=== PATIENT | female | born 1975 | race Caucasian/White ===

== ENCOUNTER 2018-08-07 20:25 | Emergency (ER) | payer MEDICAID, OTHER | END 2018-08-08 01:36 | disposition home or self-care (01) | LOC: E/R 08-08 01:36 | DX: R06.02 Shortness of breath (principal) | CPT/HCPCS: 71045; 99283-25 ==

== ENCOUNTER 2018-12-02 14:46 | Inpatient (IN) | payer MEDICAID ==
[2018-12-02] MEDS: CEFEPIME 2GM/50 ML (PMX) 50 ML IVPB (15:16)
[2018-12-02] MEDS: SODIUM CHLORIDE 0.9% 1L BAG IV* (15:16)
[2018-12-02 15:29] LABS: ABNORMAL IP MESSAGE 1; HEMATOCRIT 43.5 % (37.0-47.0); HEMOGLOBIN 13.4 g/dl (12.0-16.0); MEAN CORPUSCULAR HGB CONC 30.8 g/dl (32.0-37.0); MEAN CORPUSCULAR VOLUME 90.8 fl (82.0-101.0); MEAN PLATELET VOLUME 10.2 fl (7.4-10.4); PLATELET COUNT 237 10^3/UL (140-415); RED BLOOD COUNT 4.79 10^6/ul (4.20-5.40); RED CELL DISTRIBUTION WIDTH 16.4 % (11.5-14.5)
[2018-12-02 15:29] LABS: WHITE BLOOD COUNT 18.8 10^3/ul (4.8-10.8)
[2018-12-02] MEDS: IBUPROFEN LIQUID (PED) 20 MG/ML CUP GTB (15:30)
[2018-12-02 15:32] LABS: ADD MAN DIFF? YES; POSITIVE DIFF @See below
[2018-12-02 15:40] LABS: ADD UMIC YES; UR ASCORBIC ACID 40 mg/dL (NEGATIVE); UR BILIRUBIN (Dip) NEGATIVE (NEGATIVE); UR BLOOD (Dip) NEGATIVE (NEGATIVE); UR BUDDING YEAST MANY /HPF (NONE SEEN); UR CLARITY CLOUDY (CLEAR); UR COLOR AMBER (YELLOW); UR GLUCOSE (Dip) 1+ mg/dL (NEGATIVE); UR KETONES (Dip) TRACE mg/dL (NEGATIVE); UR LEUKOCYTE ESTERASE (Dip) 2+ Leu/ul (NEGATIVE); UR MUCUS FEW /HPF (NONE SEEN); UR NITRITE (Dip) NEGATIVE (NEGATIVE); UR RBC 1 /HPF (0-5); UR SPECIFIC GRAVITY (Dip) 1.033 (1.003-1.030); UR TOTAL PROTEIN (Dip) 1+ mg/dl (NEGATIVE); UR UROBILINOGEN (Dip) NEGATIVE (NEGATIVE); UR WBC 45 /HPF (0-5)
[2018-12-02 15:50] LABS: INR 1.26; PROTIME 15.9 Sec (11.9-14.9); PT RATIO 1.2
[2018-12-02 15:51] LABS: PARTIAL THROMBOPLASTIN TIME 35.2 Sec (23.0-35.0)
[2018-12-02] MEDS: VANCOMYCIN 1 GM (PMX) 250 ML IVPB (15:52)
[2018-12-02 15:53] LABS: ALANINE AMINOTRANSFERASE 8 IU/L (13-69); ALBUMIN 3.7 g/dl (3.3-4.9); ALKALINE PHOSPHATASE 110 IU/L (42-121); ANION GAP 10 (5-13); ASPARTATE AMINO TRANSFERASE 33 IU/L (15-46); BILIRUBIN,INDIRECT 0.4 mg/dl (0-1.1); BILIRUBIN,TOTAL 0.4 mg/dl (0.2-1.3); BLOOD UREA NITROGEN 27 mg/dl (7-20); CALCIUM 9.3 mg/dl (8.4-10.2); CARBON DIOXIDE 24 mmol/L (21-31); CHLORIDE 114 mmol/L (97-110); CREATININE 0.24 mg/dl (0.44-1.00); Estimated GFR > 60 mL/min (>60); GLUCOSE 171 mg/dl (70-220); POTASSIUM 3.3 mmol/L (3.5-5.1); SODIUM 148 mmol/L (135-144); TOTAL PROTEIN 7.8 g/dl (6.1-8.1)
[2018-12-02 16:03] LABS: TROPONIN-I < 0.012 ng/ml (0.000-0.120)
[2018-12-02 16:19] LABS: ANISOCYTOSIS 1+ (0-0); BAND NEUTROPHILS #M 6.2 10^3/ul (0.0-0.6); BAND NEUTROPHILS % (M) 33 % (0-4); LYMPHOCYTES #M 0.1 10^3/ul (0.8-2.9); LYMPHOCYTES % (M) 1 % (15-51); MICROCYTOSIS 1+ (0-0); MONOCYTE #M 0.7 10^3/ul (0.3-0.9); MONOCYTES % (M) 4 % (0-11); SEG NEUT #M 12.8 10^3/ul (1.6-7.5); SEGMENTED NEUTROPHILS (M) % 62 % (39-77); SMUDGE%M 55 % (0-0)
[2018-12-02] MEDS: morphine 4 MG/ML VIAL IV (16:46)
[2018-12-02 16:58] LABS: AADO2 Arterial 175.6 mmHg (7.0-24.0); Allen Test ACCEPTAB; Arterial Base Excess -4.3 mmol/L (-3.0-3); Arterial Blood Gas Oxygen Sat 94.6 mmHG (95.0-98.0); Arterial COHb 0.3 % (0.0-3.0); Arterial Fraction of Oxyhgb 94.1 % (93.0-99.0); Arterial HCO3 19.9 mmol/L (22.0-26.0); Arterial MetHb 0.2 % (0.0-1.5); Arterial pCO2 34.1 mmhg (35-45); Blood Gas IEPAP 15/5; Blood Gas PS 10; MODE MASK - BIPAP; Site Left Radial
[2018-12-02] MEDS ORDERED: ACETAMINOPHEN 325 MG TAB PO (17:00)
[2018-12-02] MEDS ORDERED: ONDANSETRON 4 MG INJ IV (17:00)
[2018-12-02] MEDS: ALBUTEROL/IPRATROPIUM (NEB) 3 ML AMP HHN (20:00)
[2018-12-02] MEDS ORDERED: VANCOMYCIN IV PER PHARMACY XX (20:00)
[2018-12-02] MEDS: POTASSIUM CHLORIDE (SR) 20 MEQ TAB PO (20:05)
[2018-12-02 21:53] LABS: LACTIC ACID 2.5 mmol/L (0.5-2.0)
[2018-12-02] MEDS: D5W-0.45 NACL + KCL 20 MEQ 1,000 ML IV (22:33)
[2018-12-02] MEDS: CEFEPIME 1GM/50 ML (PMX) 50 ML IVPB (22:38)
[2018-12-03] MEDS: VANCOMYCIN 1 GM 250 ML IVPB ×3 (00:38→17:29)
[2018-12-03] MEDS: ALBUTEROL/IPRATROPIUM (NEB) 3 ML AMP HHN ×4 (01:52→19:36)
[2018-12-03] MEDS ORDERED: PENDING SANTYL ORDER FOR WOUND CARE XX (05:00)
[2018-12-03] MEDS: PANTOPRAZOLE (EC) 40 MG TAB PO (05:47)
[2018-12-03 06:22] LABS: WHITE BLOOD COUNT 12.3 10^3/ul (4.8-10.8)
[2018-12-03 06:22] LABS: ABNORMAL IP MESSAGE 1; HEMOGLOBIN 10.7 g/dl (12.0-16.0); MEAN CORPUSCULAR HEMOGLOBIN 27.2 pg (29.0-33.0); MEAN CORPUSCULAR HGB CONC 28.9 g/dl (32.0-37.0); MEAN CORPUSCULAR VOLUME 93.9 fl (82.0-101.0); MEAN PLATELET VOLUME 10.5 fl (7.4-10.4); PLATELET COUNT 177 10^3/UL (140-415); RED BLOOD COUNT 3.94 10^6/ul (4.20-5.40); RED CELL DISTRIBUTION WIDTH 16.4 % (11.5-14.5)
[2018-12-03 06:34] LABS: POSITIVE DIFF @See below
[2018-12-03 06:35] LABS: ADD MAN DIFF? YES
[2018-12-03 06:46] LABS: ANION GAP 7 (5-13); BLOOD UREA NITROGEN 24 mg/dl (7-20); CALCIUM 8.6 mg/dl (8.4-10.2); CARBON DIOXIDE 25 mmol/L (21-31); CHLORIDE 116 mmol/L (97-110); CREATININE 0.17 mg/dl (0.44-1.00); Estimated GFR > 60 mL/min (>60); GLUCOSE 96 mg/dl (70-220); SODIUM 148 mmol/L (135-144)
[2018-12-03 06:51] LABS: PREALBUMIN 14.4 mg/dl (17.6-36.0)
[2018-12-03 07:35] LABS: ANISOCYTOSIS 1+ (0-0); BAND NEUTROPHILS #M 4.6 10^3/ul (0.0-0.6); BAND NEUTROPHILS % (M) 38 % (0-4); LYMPHOCYTES #M 0.9 10^3/ul (0.8-2.9); LYMPHOCYTES % (M) 8 % (15-51); MICROCYTOSIS 1+ (0-0); MONOCYTE #M 0.1 10^3/ul (0.3-0.9); MONOCYTES % (M) 1 % (0-11); PLATELET ESTIMATE NORMAL; POIKILOCYTOSIS 1+ (0-0); SEG NEUT #M 7.1 10^3/ul (1.6-7.5); SEGMENTED NEUTROPHILS (M) % 53 % (39-77); SMUDGE%M 19 % (0-0)
[2018-12-03] MEDS: D5W-0.45 NACL + KCL 20 MEQ 1,000 ML IV ×2 (08:20→17:32)
[2018-12-03] MEDS: CEFEPIME 1GM/50 ML (PMX) 50 ML IVPB ×2 (08:25→22:04)
[2018-12-03] MEDS: ENOXAPARIN 40 MG/0.4 ML SYG SC (09:05)
[2018-12-03 09:12] LABS: AADO2 Arterial 138.9 mmHg (7.0-24.0); Allen Test ACCEPTAB; Arterial Base Excess -0.5 mmol/L (-3.0-3); Arterial COHb 0.2 % (0.0-3.0); Arterial Fraction of Oxyhgb 97.6 % (93.0-99.0); Arterial HCO3 22.8 mmol/L (22.0-26.0); Arterial MetHb 0.2 % (0.0-1.5); Arterial pCO2 32.7 mmhg (35-45); Blood Gas IEPAP 15/5; Blood Gas PS 10; MODE MASK - BIPAP; Site Right Radial
[2018-12-03 15:55] LABS: VANCOMYCIN,TROUGH 14.1 ug/ml (10.0-20.0)
[2018-12-04] MEDS: VANCOMYCIN 1 GM 250 ML IVPB ×3 (00:45→16:39)
[2018-12-04] MEDS: ALBUTEROL/IPRATROPIUM (NEB) 3 ML AMP HHN ×4 (01:42→20:18)
[2018-12-04] MEDS: PANTOPRAZOLE (EC) 40 MG TAB PO (05:25)
[2018-12-04] MEDS: CEFEPIME 1GM/50 ML (PMX) 50 ML IVPB ×2 (08:13→20:49)
[2018-12-04] MEDS: D5W-0.45 NACL + KCL 20 MEQ 1,000 ML IV ×2 (08:13→16:39)
[2018-12-04] MEDS: ENOXAPARIN 40 MG/0.4 ML SYG SC (08:25)
[2018-12-04] MEDS: BALSAM PERU/CASTOR OIL 60 GM TUBE TOP ×2 (13:00→20:49)
[2018-12-05] MEDS: VANCOMYCIN 1 GM 250 ML IVPB ×3 (00:29→16:02)
[2018-12-05] MEDS: ALBUTEROL/IPRATROPIUM (NEB) 3 ML AMP HHN ×4 (02:30→19:32)
[2018-12-05] MEDS: PANTOPRAZOLE (EC) 40 MG TAB PO (05:36)
[2018-12-05 07:06] LABS: BLOOD UREA NITROGEN 5 mg/dl (7-20)
[2018-12-05 07:06] LABS: CREATININE 0.24 mg/dl (0.44-1.00)
[2018-12-05] MEDS: CEFEPIME 1GM/50 ML (PMX) 50 ML IVPB ×2 (08:43→21:25)
[2018-12-05] MEDS: BALSAM PERU/CASTOR OIL 60 GM TUBE TOP ×2 (08:43→21:26)
[2018-12-05] MEDS: ACETAMINOPHEN 650MG/20.3ML CUP GTB (08:43)
[2018-12-05] MEDS: ENOXAPARIN 40 MG/0.4 ML SYG SC (09:18)
[2018-12-05] MEDS: D5W-0.45 NACL + KCL 20 MEQ 1,000 ML IV ×2 (11:21→23:00)
[2018-12-06] MEDS: VANCOMYCIN 1 GM 250 ML IVPB ×3 (01:14→18:39)
[2018-12-06] MEDS: ALBUTEROL/IPRATROPIUM (NEB) 3 ML AMP HHN ×4 (02:41→19:40)
[2018-12-06] MEDS: PANTOPRAZOLE (EC) 40 MG TAB PO (05:37)
[2018-12-06] MEDS: D5W-0.45 NACL + KCL 20 MEQ 1,000 ML IV ×2 (05:38→19:21)
[2018-12-06] MEDS: BALSAM PERU/CASTOR OIL 60 GM TUBE TOP ×2 (08:07→21:03)
[2018-12-06] MEDS: CEFEPIME 1GM/50 ML (PMX) 50 ML IVPB ×2 (08:07→21:04)
[2018-12-06] MEDS: ENOXAPARIN 40 MG/0.4 ML SYG SC (08:21)
[2018-12-06 08:29] LABS: VANCOMYCIN,TROUGH 30.3 ug/ml (10.0-20.0)
[2018-12-07] MEDS: ALBUTEROL/IPRATROPIUM (NEB) 3 ML AMP HHN ×4 (01:29→19:40)
[2018-12-07] MEDS: PANTOPRAZOLE (EC) 40 MG TAB PO (06:00)
[2018-12-07] MEDS: VANCOMYCIN 1 GM 250 ML IVPB ×2 (06:01→18:44)
[2018-12-07 06:47] LABS: BLOOD UREA NITROGEN 13 mg/dl (7-20)
[2018-12-07 06:47] LABS: CREATININE 0.44 mg/dl (0.44-1.00)
[2018-12-07] MEDS: CEFEPIME 1GM/50 ML (PMX) 50 ML IVPB ×2 (10:12→22:18)
[2018-12-07] MEDS: BALSAM PERU/CASTOR OIL 60 GM TUBE TOP ×2 (10:13→21:30)
[2018-12-07] MEDS: ENOXAPARIN 40 MG/0.4 ML SYG SC (11:25)
[2018-12-07] MEDS: D5W-0.45 NACL + KCL 20 MEQ 1,000 ML IV (12:30)
[2018-12-07] MEDS ORDERED: FAMOTIDINE 20 MG TAB NGT (21:00)
[2018-12-07] MEDS: OXCARBAZEPINE 150 MG TAB GTB (23:51)
[2018-12-08] MEDS: ALBUTEROL/IPRATROPIUM (NEB) 3 ML AMP HHN ×4 (02:45→20:58)
[2018-12-08] MEDS: LANSOPRAZOLE 30 MG CAP PO (06:20)
[2018-12-08 06:55] LABS: ADD MAN DIFF? NO
[2018-12-08] MEDS: VANCOMYCIN 1 GM 250 ML IVPB (07:00)
[2018-12-08 07:03] LABS: WHITE BLOOD COUNT 12.2 10^3/ul (4.8-10.8)
[2018-12-08 07:03] LABS: BASOPHILS % 0.2 % (0.0-2.0); EOSINOPHILS # 0.3 10^3/ul (0.0-0.5); EOSINOPHILS % 2.8 % (0.0-7.0); HEMATOCRIT 30.6 % (37.0-47.0); HEMOGLOBIN 9.5 g/dl (12.0-16.0); LYMPHOCYTES # 1.9 10^3/ul (0.8-2.9); LYMPHOCYTES % 15.9 % (15.0-51.0); MEAN CORPUSCULAR HEMOGLOBIN 27.2 pg (29.0-33.0); MEAN CORPUSCULAR VOLUME 87.7 fl (82.0-101.0); MEAN PLATELET VOLUME 10.4 fl (7.4-10.4); MONOCYTE # 0.4 10^3/ul (0.3-0.9); MONOCYTES % 3.6 % (0.0-11.0); NEUTROPHIL # 9.4 10^3/ul (1.6-7.5); NEUTROPHILS % 76.8 % (39.0-77.0); PLATELET COUNT 263 10^3/UL (140-415); RED BLOOD COUNT 3.49 10^6/ul (4.20-5.40); RED CELL DISTRIBUTION WIDTH 15.2 % (11.5-14.5)
[2018-12-08 07:42] LABS: ANION GAP 3 (5-13); BLOOD UREA NITROGEN 16 mg/dl (7-20); CALCIUM 8.4 mg/dl (8.4-10.2); CARBON DIOXIDE 39 mmol/L (21-31); CHLORIDE 103 mmol/L (97-110); CREATININE 0.41 mg/dl (0.44-1.00); Estimated GFR > 60 mL/min (>60); GLUCOSE 118 mg/dl (70-220); MAGNESIUM 2.1 mg/dl (1.7-2.5); SODIUM 145 mmol/L (135-144)
[2018-12-08 07:53] LABS: VANCOMYCIN,TROUGH 22.9 ug/ml (10.0-20.0)
[2018-12-08 07:59] LABS: POTASSIUM 2.7 mmol/L (3.5-5.1)
[2018-12-08] MEDS: ZINC SULFATE 220 MG CAP GTB (09:00)
[2018-12-08] MEDS: OXCARBAZEPINE 150 MG TAB GTB ×2 (09:00→21:44)
[2018-12-08] MEDS: FLUCONAZOLE 200 MG TAB GTB (09:00)
[2018-12-08] MEDS: MULTIVIT/CA CARB/B CMPLX/FA TAB GTB (09:00)
[2018-12-08] MEDS: POTASSIUM CHLORIDE (SR) 20 MEQ TAB PO ×2 (09:00→12:57)
[2018-12-08] MEDS: BALSAM PERU/CASTOR OIL 60 GM TUBE TOP ×2 (09:01→21:44)
[2018-12-08] MEDS: ENOXAPARIN 40 MG/0.4 ML SYG SC (09:01)
[2018-12-08] MEDS: CEFEPIME 1GM/50 ML (PMX) 50 ML IVPB ×2 (10:45→21:45)
[2018-12-08] MEDS: VANCOMYCIN 500 MG (PMX) 100 ML IVPB (18:18)
[2018-12-09] MEDS: ALBUTEROL/IPRATROPIUM (NEB) 3 ML AMP HHN ×4 (01:45→19:36)
[2018-12-09] MEDS: LANSOPRAZOLE 30 MG CAP PO (04:43)
[2018-12-09] MEDS: VANCOMYCIN 500 MG (PMX) 100 ML IVPB ×2 (04:45→18:00)
[2018-12-09 05:48] LABS: ADD MAN DIFF? NO
[2018-12-09 05:57] LABS: BASOPHILS % 0.2 % (0.0-2.0); EOSINOPHILS # 0.4 10^3/ul (0.0-0.5); EOSINOPHILS % 2.6 % (0.0-7.0); HEMATOCRIT 31.3 % (37.0-47.0); HEMOGLOBIN 9.6 g/dl (12.0-16.0); LYMPHOCYTES # 1.9 10^3/ul (0.8-2.9); LYMPHOCYTES % 13.3 % (15.0-51.0); MEAN CORPUSCULAR HEMOGLOBIN 27.6 pg (29.0-33.0); MEAN CORPUSCULAR HGB CONC 30.7 g/dl (32.0-37.0); MEAN CORPUSCULAR VOLUME 89.9 fl (82.0-101.0); MEAN PLATELET VOLUME 10.1 fl (7.4-10.4); MONOCYTE # 0.5 10^3/ul (0.3-0.9); MONOCYTES % 3.7 % (0.0-11.0); NEUTROPHIL # 11.4 10^3/ul (1.6-7.5); NEUTROPHILS % 79.8 % (39.0-77.0); PLATELET COUNT 300 10^3/UL (140-415); RED BLOOD COUNT 3.48 10^6/ul (4.20-5.40); RED CELL DISTRIBUTION WIDTH 15.1 % (11.5-14.5)
[2018-12-09 05:57] LABS: WHITE BLOOD COUNT 14.3 10^3/ul (4.8-10.8)
[2018-12-09 06:20] LABS: ANION GAP 3 (5-13); BLOOD UREA NITROGEN 18 mg/dl (7-20); CALCIUM 8.8 mg/dl (8.4-10.2); CARBON DIOXIDE 36 mmol/L (21-31); CHLORIDE 104 mmol/L (97-110); Estimated GFR > 60 mL/min (>60); GLUCOSE 129 mg/dl (70-220); MAGNESIUM 2.1 mg/dl (1.7-2.5); POTASSIUM 4.4 mmol/L (3.5-5.1); SODIUM 143 mmol/L (135-144)
[2018-12-09] MEDS: ZINC SULFATE 220 MG CAP GTB (08:59)
[2018-12-09] MEDS: FLUCONAZOLE 100 MG TAB GTB (08:59)
[2018-12-09] MEDS: OXCARBAZEPINE 150 MG TAB GTB ×2 (08:59→20:27)
[2018-12-09] MEDS: MULTIVIT/CA CARB/B CMPLX/FA TAB GTB (08:59)
[2018-12-09] MEDS: ENOXAPARIN 40 MG/0.4 ML SYG SC (08:59)
[2018-12-09] MEDS: BALSAM PERU/CASTOR OIL 60 GM TUBE TOP ×2 (09:02→20:29)
[2018-12-09] MEDS: CEFEPIME 1GM/50 ML (PMX) 50 ML IVPB ×2 (09:45→20:29)
[2018-12-09] MEDS: ACETAMINOPHEN 650MG/20.3ML CUP GTB (16:43)
[2018-12-10] MEDS: ALBUTEROL/IPRATROPIUM (NEB) 3 ML AMP HHN ×4 (01:29→21:41)
[2018-12-10] MEDS: VANCOMYCIN 500 MG (PMX) 100 ML IVPB ×2 (05:57→19:43)
[2018-12-10] MEDS: LANSOPRAZOLE 30 MG CAP PO (05:57)
[2018-12-10 06:03] LABS: ADD MAN DIFF? NO
[2018-12-10 06:21] LABS: WHITE BLOOD COUNT 9.9 10^3/ul (4.8-10.8)
[2018-12-10 06:21] LABS: ABNORMAL IP MESSAGE 1; BASOPHILS % 0.3 % (0.0-2.0); EOSINOPHILS # 0.3 10^3/ul (0.0-0.5); HEMATOCRIT 30.3 % (37.0-47.0); HEMOGLOBIN 8.7 g/dl (12.0-16.0); LYMPHOCYTES # 1.6 10^3/ul (0.8-2.9); MEAN CORPUSCULAR HEMOGLOBIN 27.1 pg (29.0-33.0); MEAN CORPUSCULAR HGB CONC 28.7 g/dl (32.0-37.0); MEAN CORPUSCULAR VOLUME 94.4 fl (82.0-101.0); MEAN PLATELET VOLUME 10.2 fl (7.4-10.4); MONOCYTE # 0.4 10^3/ul (0.3-0.9); MONOCYTES % 4.1 % (0.0-11.0); NEUTROPHIL # 7.6 10^3/ul (1.6-7.5); NEUTROPHILS % 76.1 % (39.0-77.0); PLATELET COUNT 297 10^3/UL (140-415); RED BLOOD COUNT 3.21 10^6/ul (4.20-5.40); RED CELL DISTRIBUTION WIDTH 15.4 % (11.5-14.5)
[2018-12-10 06:30] LABS: POSITIVE DIFF @See below
[2018-12-10 06:53] LABS: ANION GAP 5 (5-13); BLOOD UREA NITROGEN 25 mg/dl (7-20); CALCIUM 8.6 mg/dl (8.4-10.2); CARBON DIOXIDE 33 mmol/L (21-31); CHLORIDE 101 mmol/L (97-110); Estimated GFR > 60 mL/min (>60); GLUCOSE 131 mg/dl (70-220); POTASSIUM 4.6 mmol/L (3.5-5.1); SODIUM 139 mmol/L (135-144)
[2018-12-10] MEDS: FLUCONAZOLE 100 MG TAB GTB (09:58)
[2018-12-10] MEDS: ZINC SULFATE 220 MG CAP GTB (09:59)
[2018-12-10] MEDS: OXCARBAZEPINE 150 MG TAB GTB ×2 (09:59→20:37)
[2018-12-10] MEDS: BALSAM PERU/CASTOR OIL 60 GM TUBE TOP ×2 (10:00→20:37)
[2018-12-10] MEDS: ENOXAPARIN 40 MG/0.4 ML SYG SC (10:06)
[2018-12-10] MEDS: CEFEPIME 1GM/50 ML (PMX) 50 ML IVPB ×2 (10:12→21:05)
[2018-12-10] MEDS: MULTIVIT/CA CARB/B CMPLX/FA TAB GTB (10:12)
[2018-12-10 18:02] LABS: VANCOMYCIN,TROUGH 14.8 ug/ml (10.0-20.0)
[2018-12-10] MEDS: ACETAMINOPHEN 650MG/20.3ML CUP GTB (20:37)
[2018-12-11] MEDS: ALBUTEROL/IPRATROPIUM (NEB) 3 ML AMP HHN ×4 (02:03→21:16)
[2018-12-11] MEDS: LANSOPRAZOLE 30 MG CAP PO (05:45)
[2018-12-11] MEDS: VANCOMYCIN 500 MG (PMX) 100 ML IVPB (05:45)
[2018-12-11 06:12] LABS: ADD MAN DIFF? NO
[2018-12-11 06:17] LABS: BASOPHILS % 0.4 % (0.0-2.0); EOSINOPHILS # 0.4 10^3/ul (0.0-0.5); EOSINOPHILS % 3.6 % (0.0-7.0); HEMATOCRIT 29.6 % (37.0-47.0); HEMOGLOBIN 8.8 g/dl (12.0-16.0); LYMPHOCYTES # 1.5 10^3/ul (0.8-2.9); LYMPHOCYTES % 15.3 % (15.0-51.0); MEAN CORPUSCULAR HEMOGLOBIN 27.2 pg (29.0-33.0); MEAN CORPUSCULAR HGB CONC 29.7 g/dl (32.0-37.0); MEAN CORPUSCULAR VOLUME 91.6 fl (82.0-101.0); MEAN PLATELET VOLUME 10.1 fl (7.4-10.4); MONOCYTE # 0.4 10^3/ul (0.3-0.9); MONOCYTES % 3.6 % (0.0-11.0); NEUTROPHIL # 7.6 10^3/ul (1.6-7.5); NEUTROPHILS % 76.6 % (39.0-77.0); PLATELET COUNT 352 10^3/UL (140-415); RED BLOOD COUNT 3.23 10^6/ul (4.20-5.40); RED CELL DISTRIBUTION WIDTH 15.4 % (11.5-14.5)
[2018-12-11 06:41] LABS: ANION GAP 5 (5-13); BLOOD UREA NITROGEN 25 mg/dl (7-20); CALCIUM 8.6 mg/dl (8.4-10.2); CARBON DIOXIDE 32 mmol/L (21-31); CHLORIDE 105 mmol/L (97-110); Estimated GFR > 60 mL/min (>60); GLUCOSE 124 mg/dl (70-220); POTASSIUM 4.9 mmol/L (3.5-5.1); SODIUM 142 mmol/L (135-144)
[2018-12-11] MEDS: CEFEPIME 1GM/50 ML (PMX) 50 ML IVPB (09:54)
[2018-12-11] MEDS: FLUCONAZOLE 100 MG TAB GTB (09:57)
[2018-12-11] MEDS: ZINC SULFATE 220 MG CAP GTB (09:57)
[2018-12-11] MEDS: OXCARBAZEPINE 150 MG TAB GTB ×2 (09:58→20:22)
[2018-12-11] MEDS: MULTIVIT/CA CARB/B CMPLX/FA TAB GTB (09:58)
[2018-12-11] MEDS: BALSAM PERU/CASTOR OIL 60 GM TUBE TOP ×2 (10:00→20:22)
[2018-12-11] MEDS: ENOXAPARIN 40 MG/0.4 ML SYG SC (10:17)
[2018-12-12] MEDS: ALBUTEROL/IPRATROPIUM (NEB) 3 ML AMP HHN ×4 (02:04→20:03)
[2018-12-12] MEDS: LANSOPRAZOLE 30 MG CAP PO (05:25)
[2018-12-12] MEDS: ENOXAPARIN 40 MG/0.4 ML SYG SC (08:20)
[2018-12-12] MEDS: OXCARBAZEPINE 150 MG TAB GTB ×2 (08:21→20:58)
[2018-12-12] MEDS: BALSAM PERU/CASTOR OIL 60 GM TUBE TOP ×2 (08:21→20:58)
[2018-12-12] MEDS: MULTIVIT/CA CARB/B CMPLX/FA TAB GTB (08:21)
[2018-12-12] MEDS: ZINC SULFATE 220 MG CAP GTB (08:21)
[2018-12-12] MEDS: BISACODYL 10 MG SUPP PR (10:39)
[2018-12-12] MEDS: METOCLOPRAMIDE (1 MG/ML) 10 ML CUP PO (18:00)
[2018-12-13] MEDS: METOCLOPRAMIDE (1 MG/ML) 10 ML CUP PO ×4 (00:20→17:50)
[2018-12-13] MEDS: ALBUTEROL/IPRATROPIUM (NEB) 3 ML AMP HHN ×3 (01:47→15:49)
[2018-12-13] MEDS: LANSOPRAZOLE 30 MG CAP PO (05:17)
[2018-12-13] MEDS: MULTIVIT/CA CARB/B CMPLX/FA TAB GTB (08:10)
[2018-12-13] MEDS: OXCARBAZEPINE 150 MG TAB GTB (08:10)
[2018-12-13] MEDS: ZINC SULFATE 220 MG CAP GTB (08:10)
[2018-12-13] MEDS: ENOXAPARIN 40 MG/0.4 ML SYG SC (08:11)
[2018-12-13] MEDS: BALSAM PERU/CASTOR OIL 60 GM TUBE TOP (08:11)
[2018-12-13] MEDS: ACETAMINOPHEN 650MG/20.3ML CUP GTB (12:41)
[2018-12-13] MEDS ORDERED: DOCUSATE SODIUM 10 MG/ML (10ML CUP) GTB (21:00)
== END 2018-12-13 18:00 | DRG 871 ==
LOC: 5EC 12-07 21:06 → E/R 14:46 → 6WM 16:43
PROVIDERS: Internal Medicine
PROC: 5A09357 Assistance with Respiratory Ventilation, Less than 24 Consecutive Hours, Continuous Positive Airway Pressure (ICD-10-PCS; principal; 2018-12-02)
DX: A41.9 Sepsis, unspecified organism (principal); J96.01 Acute respiratory failure with hypoxia; J18.9 Pneumonia, unspecified organism; G80.8 Other cerebral palsy; E46 Unspecified protein-calorie malnutrition; R65.20 Severe sepsis without septic shock; Z68.1 Body mass index [BMI] 19.9 or less, adult; B37.49 Other urogenital candidiasis; E87.0 Hyperosmolality and hypernatremia; E87.6 Hypokalemia; E86.0 Dehydration; Y95 Nosocomial condition; D64.9 Anemia, unspecified; G40.909 Epilepsy, unspecified, not intractable, without status epilepticus; Z66 Do not resuscitate
CPT/HCPCS: 36415; 36600; 71045; 80048; 80053; 80202; 81001; 82565; 82803; 82962; 83605; 83735; 84134; 84484; 84520; 85025; 85610; 85730; 87040-91; 87081; 87086; 93005; 94640; 94660; 94664; 96365; 96375; 99291-25

== ENCOUNTER 2018-12-30 20:32 | Inpatient (IN) | payer MEDICAID ==
[2018-12-30 21:22] LABS: ADD MAN DIFF? NO
[2018-12-30 21:24] LABS: BASOPHILS % 0.3 % (0.0-2.0); EOSINOPHILS # 0.3 10^3/ul (0.0-0.5); EOSINOPHILS % 2.6 % (0.0-7.0); HEMOGLOBIN 10.2 g/dl (12.0-16.0); LYMPHOCYTES % 15.3 % (15.0-51.0); MEAN CORPUSCULAR HEMOGLOBIN 27.3 pg (29.0-33.0); MEAN CORPUSCULAR HGB CONC 30.9 g/dl (32.0-37.0); MEAN CORPUSCULAR VOLUME 88.2 fl (82.0-101.0); MONOCYTE # 0.5 10^3/ul (0.3-0.9); MONOCYTES % 3.8 % (0.0-11.0); NEUTROPHIL # 10.2 10^3/ul (1.6-7.5); NEUTROPHILS % 77.7 % (39.0-77.0); PLATELET COUNT 438 10^3/UL (140-415); RED BLOOD COUNT 3.74 10^6/ul (4.20-5.40); RED CELL DISTRIBUTION WIDTH 14.1 % (11.5-14.5)
[2018-12-30 21:24] LABS: WHITE BLOOD COUNT 13.1 10^3/ul (4.8-10.8)
[2018-12-30] MEDS: SODIUM CHLORIDE 0.9% 1L BAG IV* (21:26)
[2018-12-30] MEDS: CEFEPIME 2GM/50 ML (PMX) 50 ML IVPB (21:26)
[2018-12-30 21:45] LABS: INR 1.12; PARTIAL THROMBOPLASTIN TIME 29.8 Sec (23.0-35.0); PROTIME 14.5 Sec (11.9-14.9); PT RATIO 1.1
[2018-12-30 21:50] LABS: ALANINE AMINOTRANSFERASE 9 IU/L (13-69); ALBUMIN 3.4 g/dl (3.3-4.9); ALBUMIN/GLOBULIN RATIO 0.69; ALKALINE PHOSPHATASE 121 IU/L (42-121); ANION GAP 8 (5-13); ASPARTATE AMINO TRANSFERASE 24 IU/L (15-46); BILIRUBIN,INDIRECT 0.1 mg/dl (0-1.1); BILIRUBIN,TOTAL 0.1 mg/dl (0.2-1.3); BLOOD UREA NITROGEN 16 mg/dl (7-20); CALCIUM 9.3 mg/dl (8.4-10.2); CARBON DIOXIDE 32 mmol/L (21-31); CHLORIDE 101 mmol/L (97-110); CREATININE 0.33 mg/dl (0.44-1.00); Estimated GFR > 60 mL/min (>60); GLUCOSE 121 mg/dl (70-220); POTASSIUM 4.2 mmol/L (3.5-5.1); SODIUM 141 mmol/L (135-144); TOTAL PROTEIN 8.3 g/dl (6.1-8.1)
[2018-12-30 22:01] LABS: TROPONIN-I < 0.012 ng/ml (0.000-0.120)
[2018-12-30 22:21] LABS: ADD UMIC NO; UR ASCORBIC ACID 40 mg/dL (NEGATIVE); UR BILIRUBIN (Dip) NEGATIVE (NEGATIVE); UR BLOOD (Dip) NEGATIVE (NEGATIVE); UR CLARITY SLIGHTLY CLOUDY (CLEAR); UR COLOR YELLOW (YELLOW); UR GLUCOSE (Dip) NEGATIVE (NEGATIVE); UR KETONES (Dip) NEGATIVE (NEGATIVE); UR LEUKOCYTE ESTERASE (Dip) NEGATIVE Leu/ul (NEGATIVE); UR NITRITE (Dip) NEGATIVE (NEGATIVE); UR RBC 1 /HPF (0-5); UR SPECIFIC GRAVITY (Dip) 1.015 (1.003-1.030); UR TOTAL PROTEIN (Dip) NEGATIVE (NEGATIVE); UR UROBILINOGEN (Dip) NEGATIVE (NEGATIVE); UR WBC 8 /HPF (0-5)
[2018-12-30] MEDS ORDERED: ACETAMINOPHEN 325 MG TAB PO (23:00)
[2018-12-30] MEDS ORDERED: ONDANSETRON 4 MG INJ IV (23:00)
[2018-12-30] MEDS: VANCOMYCIN 1 GM (PMX) 250 ML IVPB (23:19)
[2018-12-31 01:15] LABS: LACTIC ACID 1.1 mmol/L (0.5-2.0)
[2018-12-31] MEDS ORDERED: VANCOMYCIN IV PER PHARMACY XX ×2 (02:30→13:00)
[2018-12-31] MEDS: DEXTROSE 5%-0.45% NACL 1,000 ML IV ×2 (03:40→15:55)
[2018-12-31] MEDS ORDERED: ALBUTEROL/IPRATROPIUM (NEB) 3 ML AMP (04:13)
[2018-12-31] MEDS: ALBUTEROL/IPRATROPIUM (NEB) 3 ML AMP HHN ×4 (04:19→20:38)
[2018-12-31 05:35] LABS: ADD MAN DIFF? NO
[2018-12-31 05:42] LABS: BASOPHILS % 0.3 % (0.0-2.0); EOSINOPHILS # 0.4 10^3/ul (0.0-0.5); EOSINOPHILS % 2.8 % (0.0-7.0); HEMATOCRIT 28.5 % (37.0-47.0); HEMOGLOBIN 8.8 g/dl (12.0-16.0); LYMPHOCYTES # 2.7 10^3/ul (0.8-2.9); LYMPHOCYTES % 20.9 % (15.0-51.0); MEAN CORPUSCULAR HEMOGLOBIN 27.2 pg (29.0-33.0); MEAN CORPUSCULAR HGB CONC 30.9 g/dl (32.0-37.0); MEAN CORPUSCULAR VOLUME 88.2 fl (82.0-101.0); MONOCYTE # 0.5 10^3/ul (0.3-0.9); MONOCYTES % 4.2 % (0.0-11.0); NEUTROPHIL # 9.1 10^3/ul (1.6-7.5); NEUTROPHILS % 71.3 % (39.0-77.0); PLATELET COUNT 373 10^3/UL (140-415); RED BLOOD COUNT 3.23 10^6/ul (4.20-5.40); RED CELL DISTRIBUTION WIDTH 14.3 % (11.5-14.5)
[2018-12-31 05:42] LABS: WHITE BLOOD COUNT 12.7 10^3/ul (4.8-10.8)
[2018-12-31 06:07] LABS: LACTIC ACID 1.3 mmol/L (0.5-2.0)
[2018-12-31 06:10] LABS: ANION GAP 7 (5-13); BLOOD UREA NITROGEN 12 mg/dl (7-20); CALCIUM 8.6 mg/dl (8.4-10.2); CARBON DIOXIDE 26 mmol/L (21-31); CHLORIDE 108 mmol/L (97-110); CREATININE 0.24 mg/dl (0.44-1.00); Estimated GFR > 60 mL/min (>60); GLUCOSE 111 mg/dl (70-220); POTASSIUM 3.9 mmol/L (3.5-5.1); SODIUM 141 mmol/L (135-144)
[2018-12-31 06:11] LABS: AADO2 Arterial 94.9 mmHg (7.0-24.0); Allen Test ACCEPTAB; Arterial Base Excess 1.1 mmol/L (-3.0-3); Arterial Blood Gas Oxygen Sat 97.5 mmHG (95.0-98.0); Arterial COHb 0.3 % (0.0-3.0); Arterial Fraction of Oxyhgb 96.9 % (93.0-99.0); Arterial HCO3 24.9 mmol/L (22.0-26.0); Arterial MetHb 0.3 % (0.0-1.5); MODE NASAL CANNULA; Site Left Radial
[2018-12-31] MEDS ORDERED: PENDING SANTYL ORDER FOR WOUND CARE XX (06:30)
[2018-12-31] MEDS: CEFEPIME 1GM/50 ML (PMX) 50 ML IVPB ×2 (09:30→21:07)
[2018-12-31] MEDS ORDERED: COLLAGENASE 5 GM (UD JAR) TOP (12:27)
[2018-12-31] MEDS: VANCOMYCIN 500 MG (PMX) 100 ML IVPB ×2 (12:29→23:45)
[2018-12-31 13:37] LABS: LACTIC ACID 0.9 mmol/L (0.5-2.0)
[2018-12-31] MEDS ORDERED: hydrALAzine 20 MG INJ IV (20:30)
[2018-12-31] MEDS ORDERED: CEFEPIME 1GM/50 ML (PMX) 50 ML IVPB (21:00)
[2018-12-31] MEDS: FAMOTIDINE 20 MG INJ IV (21:07)
[2019-01-01] MEDS: DEXTROSE 5%-0.45% NACL 1,000 ML IV ×2 (05:10→10:03)
[2019-01-01 05:55] LABS: ADD MAN DIFF? NO
[2019-01-01 06:00] LABS: BASOPHILS % 0.3 % (0.0-2.0); EOSINOPHILS # 0.3 10^3/ul (0.0-0.5); HEMATOCRIT 26.4 % (37.0-47.0); LYMPHOCYTES # 2.3 10^3/ul (0.8-2.9); LYMPHOCYTES % 15.1 % (15.0-51.0); MEAN CORPUSCULAR HEMOGLOBIN 26.6 pg (29.0-33.0); MEAN CORPUSCULAR HGB CONC 30.3 g/dl (32.0-37.0); MEAN CORPUSCULAR VOLUME 87.7 fl (82.0-101.0); MONOCYTE # 0.5 10^3/ul (0.3-0.9); MONOCYTES % 3.5 % (0.0-11.0); NEUTROPHIL # 11.8 10^3/ul (1.6-7.5); NEUTROPHILS % 78.5 % (39.0-77.0); PLATELET COUNT 405 10^3/UL (140-415); RED BLOOD COUNT 3.01 10^6/ul (4.20-5.40); RED CELL DISTRIBUTION WIDTH 14.1 % (11.5-14.5)
[2019-01-01] MEDS ORDERED: PANTOPRAZOLE 40 MG INJ IV (06:00)
[2019-01-01 06:21] LABS: ANION GAP 6 (5-13); BLOOD UREA NITROGEN 9 mg/dl (7-20); CALCIUM 8.5 mg/dl (8.4-10.2); CARBON DIOXIDE 29 mmol/L (21-31); CHLORIDE 105 mmol/L (97-110); Estimated GFR > 60 mL/min (>60); GLUCOSE 96 mg/dl (70-220); POTASSIUM 3.6 mmol/L (3.5-5.1); SODIUM 140 mmol/L (135-144)
[2019-01-01] MEDS: ALBUTEROL/IPRATROPIUM (NEB) 3 ML AMP HHN ×3 (09:06→19:43)
[2019-01-01] MEDS: CEFEPIME 1GM/50 ML (PMX) 50 ML IVPB ×2 (10:03→20:23)
[2019-01-01] MEDS: AMLODIPINE 5 MG TAB GTB (10:04)
[2019-01-01] MEDS: COLLAGENASE 5 GM (UD JAR) TOP (10:04)
[2019-01-01] MEDS: FAMOTIDINE 20 MG INJ IV ×2 (10:04→20:22)
[2019-01-01 11:50] LABS: VANCOMYCIN,TROUGH 8.8 ug/ml (10.0-20.0)
[2019-01-01] MEDS: VANCOMYCIN 500 MG (PMX) 100 ML IVPB (12:28)
[2019-01-01] MEDS: VANCOMYCIN 750 MG (PMX) 250 ML IVPB (23:15)
[2019-01-02] MEDS: DEXTROSE 5%-0.45% NACL 1,000 ML IV ×2 (03:11→19:59)
[2019-01-02] MEDS: ALBUTEROL/IPRATROPIUM (NEB) 3 ML AMP HHN ×3 (07:40→20:07)
[2019-01-02] MEDS: CEFEPIME 1GM/50 ML (PMX) 50 ML IVPB ×2 (09:53→21:47)
[2019-01-02] MEDS: FAMOTIDINE 20 MG INJ IV ×2 (09:54→21:45)
[2019-01-02] MEDS: COLLAGENASE 5 GM (UD JAR) TOP (09:54)
[2019-01-02] MEDS: AMLODIPINE 5 MG TAB GTB (09:54)
[2019-01-02] MEDS: VANCOMYCIN 750 MG (PMX) 250 ML IVPB ×2 (11:52→23:35)
[2019-01-03] MEDS: ALBUTEROL/IPRATROPIUM (NEB) 3 ML AMP HHN ×3 (08:18→19:34)
[2019-01-03] MEDS: COLLAGENASE 5 GM (UD JAR) TOP (09:00)
[2019-01-03] MEDS: CEFEPIME 1GM/50 ML (PMX) 50 ML IVPB ×2 (09:38→21:11)
[2019-01-03] MEDS: DEXTROSE 5%-0.45% NACL 1,000 ML IV ×2 (09:39→23:25)
[2019-01-03] MEDS: FAMOTIDINE 20 MG INJ IV ×2 (09:39→21:10)
[2019-01-03] MEDS: AMLODIPINE 5 MG TAB GTB (09:40)
[2019-01-03 10:46] LABS: VANCOMYCIN,TROUGH 13.3 ug/ml (10.0-20.0)
[2019-01-03] MEDS: VANCOMYCIN 750 MG (PMX) 250 ML IVPB ×2 (12:07→23:25)
[2019-01-04] MEDS: DEXTROSE 5%-0.45% NACL 1,000 ML IV (05:48)
[2019-01-04 06:26] LABS: ADD MAN DIFF? NO; BASOPHIL # 0.1 10^3/ul (0.0-0.1); BASOPHILS % 0.6 % (0.0-2.0); EOSINOPHILS # 0.3 10^3/ul (0.0-0.5); EOSINOPHILS % 3.9 % (0.0-7.0); HEMATOCRIT 30.3 % (37.0-47.0); HEMOGLOBIN 9.3 g/dl (12.0-16.0); LYMPHOCYTES # 1.7 10^3/ul (0.8-2.9); LYMPHOCYTES % 20.9 % (15.0-51.0); MEAN CORPUSCULAR HEMOGLOBIN 26.6 pg (29.0-33.0); MEAN CORPUSCULAR HGB CONC 30.7 g/dl (32.0-37.0); MEAN CORPUSCULAR VOLUME 86.8 fl (82.0-101.0); MEAN PLATELET VOLUME 9.4 fl (7.4-10.4); MONOCYTE # 0.4 10^3/ul (0.3-0.9); MONOCYTES % 5.3 % (0.0-11.0); NEUTROPHIL # 5.5 10^3/ul (1.6-7.5); NEUTROPHILS % 68.9 % (39.0-77.0); PLATELET COUNT 432 10^3/UL (140-415); RED BLOOD COUNT 3.49 10^6/ul (4.20-5.40); RED CELL DISTRIBUTION WIDTH 14.2 % (11.5-14.5)
[2019-01-04 07:08] LABS: ANION GAP 6 (5-13); BLOOD UREA NITROGEN 4 mg/dl (7-20); CARBON DIOXIDE 34 mmol/L (21-31); CHLORIDE 102 mmol/L (97-110); CREATININE 0.22 mg/dl (0.44-1.00); Estimated GFR > 60 mL/min (>60); GLUCOSE 109 mg/dl (70-220); SODIUM 142 mmol/L (135-144)
[2019-01-04 07:13] LABS: POTASSIUM 2.9 mmol/L (3.5-5.1)
[2019-01-04] MEDS: ALBUTEROL/IPRATROPIUM (NEB) 3 ML AMP HHN ×3 (08:33→20:56)
[2019-01-04] MEDS: COLLAGENASE 5 GM (UD JAR) TOP (08:35)
[2019-01-04] MEDS: CEFEPIME 1GM/50 ML (PMX) 50 ML IVPB ×2 (09:05→21:13)
[2019-01-04] MEDS: AMLODIPINE 5 MG TAB GTB (09:06)
[2019-01-04] MEDS: POTASSIUM CHLORIDE 20 MEQ POWDER FOR ORAL SOLN GTB (09:06)
[2019-01-04] MEDS: FAMOTIDINE 20 MG INJ IV ×2 (09:06→21:13)
[2019-01-04] MEDS: VANCOMYCIN 750 MG (PMX) 250 ML IVPB ×2 (12:04→22:57)
[2019-01-05 06:31] LABS: ADD MAN DIFF? NO
[2019-01-05 06:34] LABS: BASOPHILS % 0.5 % (0.0-2.0); EOSINOPHILS # 0.3 10^3/ul (0.0-0.5); EOSINOPHILS % 3.5 % (0.0-7.0); HEMATOCRIT 32.3 % (37.0-47.0); HEMOGLOBIN 9.6 g/dl (12.0-16.0); LYMPHOCYTES # 1.7 10^3/ul (0.8-2.9); LYMPHOCYTES % 23.1 % (15.0-51.0); MEAN CORPUSCULAR HEMOGLOBIN 26.3 pg (29.0-33.0); MEAN CORPUSCULAR HGB CONC 29.7 g/dl (32.0-37.0); MEAN CORPUSCULAR VOLUME 88.5 fl (82.0-101.0); MEAN PLATELET VOLUME 9.6 fl (7.4-10.4); MONOCYTE # 0.4 10^3/ul (0.3-0.9); MONOCYTES % 5.8 % (0.0-11.0); NEUTROPHILS % 66.8 % (39.0-77.0); PLATELET COUNT 469 10^3/UL (140-415); RED BLOOD COUNT 3.65 10^6/ul (4.20-5.40); RED CELL DISTRIBUTION WIDTH 14.2 % (11.5-14.5)
[2019-01-05 06:34] LABS: WHITE BLOOD COUNT 7.4 10^3/ul (4.8-10.8)
[2019-01-05 06:52] LABS: ANION GAP 8 (5-13); BLOOD UREA NITROGEN 9 mg/dl (7-20); CALCIUM 9.1 mg/dl (8.4-10.2); CARBON DIOXIDE 29 mmol/L (21-31); CHLORIDE 104 mmol/L (97-110); CREATININE 0.21 mg/dl (0.44-1.00); Estimated GFR > 60 mL/min (>60); GLUCOSE 98 mg/dl (70-220); POTASSIUM 3.4 mmol/L (3.5-5.1); SODIUM 141 mmol/L (135-144)
[2019-01-05] MEDS: ALBUTEROL/IPRATROPIUM (NEB) 3 ML AMP HHN ×3 (08:04→20:03)
[2019-01-05] MEDS: AMLODIPINE 5 MG TAB GTB (09:09)
[2019-01-05] MEDS: CEFEPIME 1GM/50 ML (PMX) 50 ML IVPB ×2 (09:09→20:36)
[2019-01-05] MEDS: FAMOTIDINE 20 MG INJ IV ×2 (09:09→20:36)
[2019-01-05] MEDS: COLLAGENASE 5 GM (UD JAR) TOP (09:09)
[2019-01-05] MEDS: VANCOMYCIN 750 MG (PMX) 250 ML IVPB ×2 (11:49→23:56)
[2019-01-05] MEDS: ZINC SULFATE 220 MG CAP GTB (12:14)
[2019-01-05] MEDS: POTASSIUM CHLORIDE 20 MEQ POWDER FOR ORAL SOLN NGT (12:14)
[2019-01-06 05:31] LABS: ANION GAP 5 (5-13); BLOOD UREA NITROGEN 12 mg/dl (7-20); CALCIUM 9.1 mg/dl (8.4-10.2); CARBON DIOXIDE 36 mmol/L (21-31); CHLORIDE 101 mmol/L (97-110); CREATININE 0.27 mg/dl (0.44-1.00); Estimated GFR > 60 mL/min (>60); GLUCOSE 115 mg/dl (70-220); POTASSIUM 3.6 mmol/L (3.5-5.1); SODIUM 142 mmol/L (135-144)
[2019-01-06] MEDS: AMLODIPINE 5 MG TAB GTB (08:10)
[2019-01-06] MEDS: ZINC SULFATE 220 MG CAP GTB (08:10)
[2019-01-06] MEDS: CEFEPIME 1GM/50 ML (PMX) 50 ML IVPB ×2 (08:10→21:03)
[2019-01-06] MEDS: FAMOTIDINE 20 MG INJ IV (08:10)
[2019-01-06] MEDS: ASCORBIC ACID 500 MG TAB GTB (08:10)
[2019-01-06] MEDS: ALBUTEROL/IPRATROPIUM (NEB) 3 ML AMP HHN ×3 (08:38→19:56)
[2019-01-06] MEDS: COLLAGENASE 5 GM (UD JAR) TOP (09:36)
[2019-01-06] MEDS: HYDROCODONE/APAP (5/325) TAB PO (09:36)
[2019-01-06 11:42] LABS: VANCOMYCIN,TROUGH 8.6 ug/ml (10.0-20.0)
[2019-01-06] MEDS: METOCLOPRAMIDE 10 MG INJ IV ×3 (12:12→23:38)
[2019-01-06] MEDS: VANCOMYCIN 750 MG (PMX) 250 ML IVPB ×2 (12:12→23:34)
[2019-01-06] MEDS: FUROSEMIDE 20 MG INJ IV (12:13)
[2019-01-06] MEDS: SCOPOLAMINE 1.5 MG PATCH TRANSDERM (17:34)
[2019-01-06] MEDS: FAMOTIDINE 20 MG TAB PO (21:03)
[2019-01-07] MEDS: METOCLOPRAMIDE 10 MG INJ IV ×4 (05:16→23:07)
[2019-01-07 05:57] LABS: ANION GAP 4 (5-13); BLOOD UREA NITROGEN 18 mg/dl (7-20); CARBON DIOXIDE 37 mmol/L (21-31); CHLORIDE 100 mmol/L (97-110); CREATININE 0.26 mg/dl (0.44-1.00); Estimated GFR > 60 mL/min (>60); GLUCOSE 108 mg/dl (70-220); SODIUM 141 mmol/L (135-144)
[2019-01-07] MEDS: ALBUTEROL/IPRATROPIUM (NEB) 3 ML AMP HHN ×3 (08:17→19:45)
[2019-01-07] MEDS: ASCORBIC ACID 500 MG TAB GTB (09:25)
[2019-01-07] MEDS: ZINC SULFATE 220 MG CAP GTB (09:25)
[2019-01-07] MEDS: FAMOTIDINE 20 MG TAB PO ×2 (09:25→20:59)
[2019-01-07] MEDS: COLLAGENASE 5 GM (UD JAR) TOP (09:26)
[2019-01-07] MEDS: CEFEPIME 1GM/50 ML (PMX) 50 ML IVPB ×2 (09:26→20:59)
[2019-01-07] MEDS: AMLODIPINE 5 MG TAB GTB (09:26)
[2019-01-07] MEDS: VANCOMYCIN 750 MG (PMX) 250 ML IVPB ×2 (10:48→23:07)
[2019-01-08] MEDS: METOCLOPRAMIDE 10 MG INJ IV ×3 (05:46→17:12)
[2019-01-08 06:14] LABS: ANION GAP 4 (5-13); BLOOD UREA NITROGEN 15 mg/dl (7-20); CARBON DIOXIDE 35 mmol/L (21-31); CHLORIDE 98 mmol/L (97-110); CREATININE 0.26 mg/dl (0.44-1.00); Estimated GFR > 60 mL/min (>60); GLUCOSE 101 mg/dl (70-220); POTASSIUM 4.5 mmol/L (3.5-5.1); SODIUM 137 mmol/L (135-144)
[2019-01-08] MEDS: ALBUTEROL/IPRATROPIUM (NEB) 3 ML AMP HHN ×3 (07:19→20:22)
[2019-01-08] MEDS: FAMOTIDINE 20 MG TAB PO ×2 (09:29→20:49)
[2019-01-08] MEDS: ZINC SULFATE 220 MG CAP GTB (09:30)
[2019-01-08] MEDS: ASCORBIC ACID 500 MG TAB GTB (09:30)
[2019-01-08] MEDS: AMLODIPINE 5 MG TAB GTB (09:30)
[2019-01-08] MEDS: CEFEPIME 1GM/50 ML (PMX) 50 ML IVPB (09:30)
[2019-01-08 11:03] LABS: ADD MAN DIFF? NO
[2019-01-08 11:08] LABS: BASOPHIL # 0.1 10^3/ul (0.0-0.1); BASOPHILS % 0.8 % (0.0-2.0); EOSINOPHILS # 0.5 10^3/ul (0.0-0.5); HEMATOCRIT 30.6 % (37.0-47.0); HEMOGLOBIN 9.3 g/dl (12.0-16.0); LYMPHOCYTES % 19.4 % (15.0-51.0); MEAN CORPUSCULAR HEMOGLOBIN 26.3 pg (29.0-33.0); MEAN CORPUSCULAR HGB CONC 30.4 g/dl (32.0-37.0); MEAN CORPUSCULAR VOLUME 86.7 fl (82.0-101.0); MEAN PLATELET VOLUME 9.4 fl (7.4-10.4); MONOCYTE # 0.5 10^3/ul (0.3-0.9); MONOCYTES % 5.2 % (0.0-11.0); NEUTROPHILS % 69.2 % (39.0-77.0); PLATELET COUNT 375 10^3/UL (140-415); RED BLOOD COUNT 3.53 10^6/ul (4.20-5.40); RED CELL DISTRIBUTION WIDTH 14.1 % (11.5-14.5)
[2019-01-08 11:08] LABS: WHITE BLOOD COUNT 10.1 10^3/ul (4.8-10.8)
[2019-01-08 11:32] LABS: ANION GAP 6 (5-13); BLOOD UREA NITROGEN 16 mg/dl (7-20); CALCIUM 9.4 mg/dl (8.4-10.2); CARBON DIOXIDE 34 mmol/L (21-31); CHLORIDE 95 mmol/L (97-110); CREATININE 0.29 mg/dl (0.44-1.00); Estimated GFR > 60 mL/min (>60); GLUCOSE 106 mg/dl (70-220); POTASSIUM 4.5 mmol/L (3.5-5.1); SODIUM 135 mmol/L (135-144)
[2019-01-08] MEDS: COLLAGENASE 5 GM (UD JAR) TOP (14:07)
[2019-01-09] MEDS: METOCLOPRAMIDE 10 MG INJ IV ×4 (00:27→17:10)
[2019-01-09 05:23] LABS: ADD MAN DIFF? NO
[2019-01-09 05:32] LABS: BASOPHIL # 0.1 10^3/ul (0.0-0.1); BASOPHILS % 0.5 % (0.0-2.0); EOSINOPHILS # 0.4 10^3/ul (0.0-0.5); HEMATOCRIT 36.4 % (37.0-47.0); HEMOGLOBIN 11.3 g/dl (12.0-16.0); LYMPHOCYTES # 2.1 10^3/ul (0.8-2.9); MEAN CORPUSCULAR HEMOGLOBIN 26.5 pg (29.0-33.0); MEAN CORPUSCULAR VOLUME 85.2 fl (82.0-101.0); MEAN PLATELET VOLUME 9.6 fl (7.4-10.4); MONOCYTE # 0.6 10^3/ul (0.3-0.9); NEUTROPHILS % 74.2 % (39.0-77.0); PLATELET COUNT 385 10^3/UL (140-415); RED BLOOD COUNT 4.27 10^6/ul (4.20-5.40); RED CELL DISTRIBUTION WIDTH 14.2 % (11.5-14.5)
[2019-01-09 05:32] LABS: WHITE BLOOD COUNT 12.2 10^3/ul (4.8-10.8)
[2019-01-09 05:46] LABS: ANION GAP 7 (5-13); BLOOD UREA NITROGEN 17 mg/dl (7-20); CALCIUM 9.7 mg/dl (8.4-10.2); CARBON DIOXIDE 33 mmol/L (21-31); CHLORIDE 94 mmol/L (97-110); CREATININE 0.26 mg/dl (0.44-1.00); Estimated GFR > 60 mL/min (>60); GLUCOSE 122 mg/dl (70-220); SODIUM 134 mmol/L (135-144)
[2019-01-09] MEDS: FAMOTIDINE 20 MG TAB PO ×2 (08:24→21:58)
[2019-01-09] MEDS: AMLODIPINE 5 MG TAB GTB (08:24)
[2019-01-09] MEDS: ASCORBIC ACID 500 MG TAB GTB (08:24)
[2019-01-09] MEDS: COLLAGENASE 5 GM (UD JAR) TOP (08:24)
[2019-01-09] MEDS: ZINC SULFATE 220 MG CAP GTB (08:24)
[2019-01-09] MEDS: LEVALBUTEROL (NEB) 0.63 MG/3 ML AMP HHN ×3 (09:50→23:55)
[2019-01-09] MEDS: HYDROCODONE/APAP (5/325) TAB PO (15:48)
[2019-01-09] MEDS: CEFEPIME 1GM/50 ML (PMX) 50 ML IVPB (16:22)
[2019-01-09] MEDS: DOXYCYCLINE 100 MG in SOD CHLORIDE 0.9% 250 ML IVPB (17:12)
[2019-01-09] MEDS: SCOPOLAMINE 1.5 MG PATCH TRANSDERM (17:12)
[2019-01-10] MEDS: METOCLOPRAMIDE 10 MG INJ IV ×4 (00:13→17:21)
[2019-01-10] MEDS: CEFEPIME 1GM/50 ML (PMX) 50 ML IVPB ×3 (00:14→21:28)
[2019-01-10] MEDS: DOXYCYCLINE 100 MG in SOD CHLORIDE 0.9% 250 ML IVPB ×3 (01:52→21:31)
[2019-01-10 06:10] LABS: ADD MAN DIFF? NO
[2019-01-10 06:27] LABS: WHITE BLOOD COUNT 9.7 10^3/ul (4.8-10.8)
[2019-01-10 06:27] LABS: BASOPHIL # 0.1 10^3/ul (0.0-0.1); BASOPHILS % 0.5 % (0.0-2.0); EOSINOPHILS # 0.5 10^3/ul (0.0-0.5); EOSINOPHILS % 5.3 % (0.0-7.0); HEMATOCRIT 32.8 % (37.0-47.0); HEMOGLOBIN 9.9 g/dl (12.0-16.0); LYMPHOCYTES # 2.4 10^3/ul (0.8-2.9); LYMPHOCYTES % 24.3 % (15.0-51.0); MEAN CORPUSCULAR HEMOGLOBIN 26.2 pg (29.0-33.0); MEAN CORPUSCULAR HGB CONC 30.2 g/dl (32.0-37.0); MEAN CORPUSCULAR VOLUME 86.8 fl (82.0-101.0); MEAN PLATELET VOLUME 9.6 fl (7.4-10.4); MONOCYTE # 0.7 10^3/ul (0.3-0.9); MONOCYTES % 7.2 % (0.0-11.0); NEUTROPHILS % 62.2 % (39.0-77.0); PLATELET COUNT 288 10^3/UL (140-415); RED BLOOD COUNT 3.78 10^6/ul (4.20-5.40)
[2019-01-10 06:45] LABS: ANION GAP 8 (5-13); BLOOD UREA NITROGEN 19 mg/dl (7-20); CALCIUM 9.4 mg/dl (8.4-10.2); CARBON DIOXIDE 32 mmol/L (21-31); CHLORIDE 97 mmol/L (97-110); CREATININE 0.25 mg/dl (0.44-1.00); Estimated GFR > 60 mL/min (>60); GLUCOSE 104 mg/dl (70-220); POTASSIUM 4.6 mmol/L (3.5-5.1); SODIUM 137 mmol/L (135-144)
[2019-01-10] MEDS: COLLAGENASE 5 GM (UD JAR) TOP (07:33)
[2019-01-10] MEDS: ZINC SULFATE 220 MG CAP GTB (07:33)
[2019-01-10] MEDS: AMLODIPINE 5 MG TAB GTB (07:33)
[2019-01-10] MEDS: ASCORBIC ACID 500 MG TAB GTB (07:33)
[2019-01-10] MEDS: FAMOTIDINE 20 MG TAB PO ×2 (07:33→21:32)
[2019-01-10] MEDS: LEVALBUTEROL (NEB) 0.63 MG/3 ML AMP HHN ×2 (08:08→15:25)
[2019-01-11] MEDS: LEVALBUTEROL (NEB) 0.63 MG/3 ML AMP HHN ×3 (00:24→15:03)
[2019-01-11] MEDS: METOCLOPRAMIDE 10 MG INJ IV ×4 (01:00→17:33)
[2019-01-11] MEDS: CEFEPIME 1GM/50 ML (PMX) 50 ML IVPB ×2 (08:24→20:59)
[2019-01-11] MEDS: FAMOTIDINE 20 MG TAB PO ×2 (08:26→21:06)
[2019-01-11] MEDS: ASCORBIC ACID 500 MG TAB GTB (08:26)
[2019-01-11] MEDS: ZINC SULFATE 220 MG CAP GTB (08:26)
[2019-01-11] MEDS: DOXYCYCLINE 100 MG in SOD CHLORIDE 0.9% 250 ML IVPB ×2 (08:26→21:31)
[2019-01-11] MEDS: AMLODIPINE 5 MG TAB GTB (08:27)
[2019-01-11] MEDS: COLLAGENASE 5 GM (UD JAR) TOP (08:27)
[2019-01-11] MEDS: ACETAMINOPHEN 325 MG TAB PO ×2 (09:57→16:26)
[2019-01-12] MEDS: HYDROCODONE/APAP (5/325) TAB PO (01:04)
[2019-01-12] MEDS: METOCLOPRAMIDE 10 MG INJ IV ×4 (01:04→17:36)
[2019-01-12 05:52] LABS: WHITE BLOOD COUNT 10.8 10^3/ul (4.8-10.8)
[2019-01-12 05:52] LABS: ADD MAN DIFF? NO; BASOPHIL # 0.1 10^3/ul (0.0-0.1); BASOPHILS % 0.5 % (0.0-2.0); EOSINOPHILS # 0.3 10^3/ul (0.0-0.5); EOSINOPHILS % 3.1 % (0.0-7.0); HEMATOCRIT 31.9 % (37.0-47.0); HEMOGLOBIN 9.6 g/dl (12.0-16.0); LYMPHOCYTES # 1.6 10^3/ul (0.8-2.9); LYMPHOCYTES % 14.4 % (15.0-51.0); MEAN CORPUSCULAR HEMOGLOBIN 26.2 pg (29.0-33.0); MEAN CORPUSCULAR HGB CONC 30.1 g/dl (32.0-37.0); MEAN CORPUSCULAR VOLUME 86.9 fl (82.0-101.0); MEAN PLATELET VOLUME 10.3 fl (7.4-10.4); MONOCYTE # 0.5 10^3/ul (0.3-0.9); NEUTROPHIL # 8.3 10^3/ul (1.6-7.5); NEUTROPHILS % 76.6 % (39.0-77.0); PLATELET COUNT 248 10^3/UL (140-415); RED BLOOD COUNT 3.67 10^6/ul (4.20-5.40); RED CELL DISTRIBUTION WIDTH 13.6 % (11.5-14.5)
[2019-01-12 06:08] LABS: ANION GAP 8 (5-13); BLOOD UREA NITROGEN 19 mg/dl (7-20); CALCIUM 9.3 mg/dl (8.4-10.2); CARBON DIOXIDE 30 mmol/L (21-31); CHLORIDE 98 mmol/L (97-110); CREATININE 0.25 mg/dl (0.44-1.00); Estimated GFR > 60 mL/min (>60); GLUCOSE 102 mg/dl (70-220); POTASSIUM 4.8 mmol/L (3.5-5.1); SODIUM 136 mmol/L (135-144)
[2019-01-12] MEDS: LEVALBUTEROL (NEB) 0.63 MG/3 ML AMP HHN ×4 (08:11→23:10)
[2019-01-12] MEDS: FAMOTIDINE 20 MG TAB PO ×2 (09:05→21:16)
[2019-01-12] MEDS: ASCORBIC ACID 500 MG TAB GTB (09:05)
[2019-01-12] MEDS: ZINC SULFATE 220 MG CAP GTB (09:06)
[2019-01-12] MEDS: AMLODIPINE 5 MG TAB GTB (09:07)
[2019-01-12] MEDS: CEFEPIME 1GM/50 ML (PMX) 50 ML IVPB (09:07)
[2019-01-12] MEDS: COLLAGENASE 5 GM (UD JAR) TOP (09:07)
[2019-01-12] MEDS: ENOXAPARIN 30 MG/0.3 ML SYG SC (09:30)
[2019-01-12] MEDS: DOXYCYCLINE 100 MG in SOD CHLORIDE 0.9% 250 ML IVPB (10:42)
[2019-01-12] MEDS: SCOPOLAMINE 1.5 MG PATCH TRANSDERM (17:34)
[2019-01-13] MEDS: METOCLOPRAMIDE 10 MG INJ IV ×4 (00:22→18:00)
[2019-01-13 05:32] LABS: ADD MAN DIFF? NO
[2019-01-13 05:39] LABS: WHITE BLOOD COUNT 8.4 10^3/ul (4.8-10.8)
[2019-01-13 05:39] LABS: BASOPHILS % 0.4 % (0.0-2.0); EOSINOPHILS # 0.7 10^3/ul (0.0-0.5); HEMATOCRIT 28.4 % (37.0-47.0); HEMOGLOBIN 8.3 g/dl (12.0-16.0); LYMPHOCYTES # 1.9 10^3/ul (0.8-2.9); LYMPHOCYTES % 22.1 % (15.0-51.0); MEAN CORPUSCULAR HEMOGLOBIN 25.4 pg (29.0-33.0); MEAN CORPUSCULAR HGB CONC 29.2 g/dl (32.0-37.0); MEAN CORPUSCULAR VOLUME 86.9 fl (82.0-101.0); MEAN PLATELET VOLUME 10.1 fl (7.4-10.4); MONOCYTE # 0.5 10^3/ul (0.3-0.9); MONOCYTES % 5.9 % (0.0-11.0); NEUTROPHIL # 5.3 10^3/ul (1.6-7.5); NEUTROPHILS % 63.4 % (39.0-77.0); PLATELET COUNT 239 10^3/UL (140-415); RED BLOOD COUNT 3.27 10^6/ul (4.20-5.40); RED CELL DISTRIBUTION WIDTH 13.8 % (11.5-14.5)
[2019-01-13 06:01] LABS: ANION GAP 8 (5-13); BLOOD UREA NITROGEN 15 mg/dl (7-20); CALCIUM 9.2 mg/dl (8.4-10.2); CARBON DIOXIDE 30 mmol/L (21-31); CHLORIDE 99 mmol/L (97-110); CREATININE 0.28 mg/dl (0.44-1.00); Estimated GFR > 60 mL/min (>60); GLUCOSE 108 mg/dl (70-220); POTASSIUM 4.2 mmol/L (3.5-5.1); SODIUM 137 mmol/L (135-144)
[2019-01-13] MEDS: LEVALBUTEROL (NEB) 0.63 MG/3 ML AMP HHN ×2 (08:06→16:36)
[2019-01-13] MEDS: FAMOTIDINE 20 MG TAB PO (08:28)
[2019-01-13] MEDS: ZINC SULFATE 220 MG CAP GTB (08:28)
[2019-01-13] MEDS: AMLODIPINE 5 MG TAB GTB (08:30)
[2019-01-13] MEDS: COLLAGENASE 5 GM (UD JAR) TOP (08:30)
[2019-01-13] MEDS: ENOXAPARIN 30 MG/0.3 ML SYG SC (09:42)
[2019-01-13] MEDS: ASCORBIC ACID 500 MG TAB GTB (10:57)
== END 2019-01-13 18:43 | DRG 177 ==
LOC: 6WM 22:36 → E/R 20:32
DX: J69.0 Pneumonitis due to inhalation of food and vomit (principal); L89.153 Pressure ulcer of sacral region, stage 3; J96.01 Acute respiratory failure with hypoxia; E46 Unspecified protein-calorie malnutrition; R13.10 Dysphagia, unspecified; G80.9 Cerebral palsy, unspecified; D64.9 Anemia, unspecified; E87.6 Hypokalemia; F32.9 Major depressive disorder, single episode, unspecified; Z66 Do not resuscitate; Z93.1 Gastrostomy status
CPT/HCPCS: 36415; 36600; 71045; 80048; 80053; 80202; 81001; 81003; 82803; 83605; 84484; 85025; 85610; 85730; 87040-91; 87081; 87086; 93005; 94640; 94664; 96374; 99285-25

== ENCOUNTER 2019-02-03 09:13 | Inpatient (IN) | payer MEDICAID ==
[2019-02-03] MEDS: SODIUM CHLORIDE 0.9% 1L BAG IV* (09:41)
[2019-02-03 09:42] LABS: ADD MAN DIFF? NO
[2019-02-03 09:43] LABS: BASOPHIL # 0.1 10^3/ul (0.0-0.1); BASOPHILS % 0.5 % (0.0-2.0); HEMATOCRIT 41.8 % (37.0-47.0); HEMOGLOBIN 12.4 g/dl (12.0-16.0); LYMPHOCYTES # 0.9 10^3/ul (0.8-2.9); LYMPHOCYTES % 4.7 % (15.0-51.0); MEAN CORPUSCULAR HEMOGLOBIN 25.4 pg (29.0-33.0); MEAN CORPUSCULAR HGB CONC 29.7 g/dl (32.0-37.0); MEAN CORPUSCULAR VOLUME 85.5 fl (82.0-101.0); MEAN PLATELET VOLUME 9.5 fl (7.4-10.4); MONOCYTE # 0.3 10^3/ul (0.3-0.9); MONOCYTES % 1.5 % (0.0-11.0); NEUTROPHIL # 17.5 10^3/ul (1.6-7.5); NEUTROPHILS % 92.9 % (39.0-77.0); PLATELET COUNT 507 10^3/UL (140-415); RED BLOOD COUNT 4.89 10^6/ul (4.20-5.40)
[2019-02-03 09:43] LABS: WHITE BLOOD COUNT 18.8 10^3/ul (4.8-10.8)
[2019-02-03] MEDS: CEFEPIME 2GM/50 ML (PMX) 50 ML IVPB (09:45)
[2019-02-03] MEDS: ACETAMINOPHEN 650MG/20.3ML CUP NGT (09:45)
[2019-02-03] MEDS ORDERED: ONDANSETRON 4 MG INJ (09:52)
[2019-02-03 10:00] LABS: ALBUMIN 4.2 g/dl (3.3-4.9); ALBUMIN/GLOBULIN RATIO 0.82; ALKALINE PHOSPHATASE 125 IU/L (42-121); ANION GAP 13 (5-13); ASPARTATE AMINO TRANSFERASE 21 IU/L (15-46); BILIRUBIN,INDIRECT 0.4 mg/dl (0-1.1); BILIRUBIN,TOTAL 0.4 mg/dl (0.2-1.3); BLOOD UREA NITROGEN 16 mg/dl (7-20); CALCIUM 9.5 mg/dl (8.4-10.2); CARBON DIOXIDE 26 mmol/L (21-31); CHLORIDE 98 mmol/L (97-110); CREATININE 0.26 mg/dl (0.44-1.00); Estimated GFR > 60 mL/min (>60); GLUCOSE 155 mg/dl (70-220); POTASSIUM 4.5 mmol/L (3.5-5.1); SODIUM 137 mmol/L (135-144); TOTAL PROTEIN 9.3 g/dl (6.1-8.1)
[2019-02-03 10:02] LABS: INR 0.96; PROTIME 12.9 Sec (11.9-14.9)
[2019-02-03 10:06] LABS: ALANINE AMINOTRANSFERASE < 6 IU/L (13-69)
[2019-02-03 10:11] LABS: TROPONIN-I < 0.012 ng/ml (0.000-0.120)
[2019-02-03] MEDS: ONDANSETRON 4 MG INJ IV (10:20)
[2019-02-03 10:30] LABS: ADD UMIC YES; UR AMORPHOUS CRYSTAL FEW /HPF (NONE SEEN); UR ASCORBIC ACID 40 mg/dL (NEGATIVE); UR BACTERIA FEW /HPF (NONE SEEN); UR BILIRUBIN (Dip) NEGATIVE (NEGATIVE); UR BLOOD (Dip) NEGATIVE (NEGATIVE); UR CLARITY CLOUDY (CLEAR); UR COLOR YELLOW (YELLOW); UR GLUCOSE (Dip) NEGATIVE (NEGATIVE); UR KETONES (Dip) NEGATIVE (NEGATIVE); UR LEUKOCYTE ESTERASE (Dip) 2+ Leu/ul (NEGATIVE); UR MUCUS MODERATE /HPF (NONE SEEN); UR NITRITE (Dip) NEGATIVE (NEGATIVE); UR RBC 3 /HPF (0-5); UR SPECIFIC GRAVITY (Dip) 1.019 (1.003-1.030); UR TOTAL PROTEIN (Dip) NEGATIVE (NEGATIVE); UR UROBILINOGEN (Dip) NEGATIVE (NEGATIVE); UR WBC 76 /HPF (0-5)
[2019-02-03] MEDS: VANCOMYCIN 1 GM (PMX) 250 ML IVPB (11:31)
[2019-02-03 11:40] LABS: LACTIC ACID 4.1 mmol/L (0.5-2.0)
[2019-02-03] MEDS ORDERED: ONDANSETRON 4 MG INJ IV ×2 (12:30→17:30)
[2019-02-03] MEDS ORDERED: ACETAMINOPHEN 325 MG TAB PO (12:30)
[2019-02-03 13:43] LABS: LACTIC ACID 1.7 mmol/L (0.5-2.0)
[2019-02-03] MEDS ORDERED: NACL 0.9% 3 ML SYG IV (17:30)
[2019-02-03] MEDS ORDERED: FERROUS SULFATE 60 MG/ML 5ML CUP GTB (21:00)
[2019-02-03] MEDS: DOCUSATE SODIUM 10 MG/ML (10ML CUP) GTB (21:34)
[2019-02-03] MEDS: FAMOTIDINE 20 MG TAB GTB (21:35)
[2019-02-03] MEDS: FERROUS SULFATE 60 MG/ML 5ML CUP GTB (21:35)
[2019-02-03] MEDS: OXCARBAZEPINE 150 MG TAB GTB (21:39)
[2019-02-03 23:31] LABS: AADO2 Arterial 490.4 mmHg (7.0-24.0); Arterial Blood Gas Oxygen Sat 99.3 mmHG (95.0-98.0); Arterial COHb 0.3 % (0.0-3.0); Arterial Fraction of Oxyhgb 98.7 % (93.0-99.0); Arterial HCO3 21.4 mmol/L (22.0-26.0); Arterial MetHb 0.3 % (0.0-1.5); Arterial pCO2 35.3 mmhg (35-45); MODE MASK - NRB; Site LB
[2019-02-04 07:29] LABS: ADD MAN DIFF? NO
[2019-02-04 07:39] LABS: BASOPHIL # 0.1 10^3/ul (0.0-0.1); BASOPHILS % 0.4 % (0.0-2.0); EOSINOPHILS # 0.3 10^3/ul (0.0-0.5); EOSINOPHILS % 1.8 % (0.0-7.0); HEMOGLOBIN 8.8 g/dl (12.0-16.0); LYMPHOCYTES # 2.5 10^3/ul (0.8-2.9); LYMPHOCYTES % 13.9 % (15.0-51.0); MEAN CORPUSCULAR HEMOGLOBIN 25.4 pg (29.0-33.0); MEAN CORPUSCULAR HGB CONC 29.3 g/dl (32.0-37.0); MEAN CORPUSCULAR VOLUME 86.7 fl (82.0-101.0); MEAN PLATELET VOLUME 10.3 fl (7.4-10.4); MONOCYTE # 0.4 10^3/ul (0.3-0.9); MONOCYTES % 2.2 % (0.0-11.0); NEUTROPHIL # 14.5 10^3/ul (1.6-7.5); NEUTROPHILS % 81.1 % (39.0-77.0); PLATELET COUNT 399 10^3/UL (140-415); RED BLOOD COUNT 3.46 10^6/ul (4.20-5.40); RED CELL DISTRIBUTION WIDTH 17.1 % (11.5-14.5)
[2019-02-04 07:39] LABS: WHITE BLOOD COUNT 17.9 10^3/ul (4.8-10.8)
[2019-02-04 07:58] LABS: ALANINE AMINOTRANSFERASE 11 IU/L (13-69); ALBUMIN 3.2 g/dl (3.3-4.9); ALKALINE PHOSPHATASE 99 IU/L (42-121); ANION GAP 8 (5-13); ASPARTATE AMINO TRANSFERASE 23 IU/L (15-46); BILIRUBIN,INDIRECT 0.4 mg/dl (0-1.1); BILIRUBIN,TOTAL 0.4 mg/dl (0.2-1.3); BLOOD UREA NITROGEN 7 mg/dl (7-20); CALCIUM 8.8 mg/dl (8.4-10.2); CARBON DIOXIDE 25 mmol/L (21-31); CHLORIDE 105 mmol/L (97-110); CREATININE 0.24 mg/dl (0.44-1.00); Estimated GFR > 60 mL/min (>60); GLUCOSE 82 mg/dl (70-220); POTASSIUM 3.3 mmol/L (3.5-5.1); SODIUM 138 mmol/L (135-144); TOTAL PROTEIN 7.2 g/dl (6.1-8.1)
[2019-02-04] MEDS: ASCORBIC ACID 500 MG TAB GTB (08:59)
[2019-02-04] MEDS: OXCARBAZEPINE 150 MG TAB GTB ×2 (08:59→20:00)
[2019-02-04] MEDS: FERROUS SULFATE 60 MG/ML 5ML CUP GTB ×2 (08:59→20:01)
[2019-02-04] MEDS: FAMOTIDINE 20 MG TAB GTB ×2 (08:59→20:01)
[2019-02-04] MEDS: ZINC SULFATE 220 MG CAP GTB (08:59)
[2019-02-04] MEDS: ENOXAPARIN 30 MG/0.3 ML SYG SC (10:08)
[2019-02-04] MEDS: FLUCONAZOLE 100 MG/50 ML (PMX) 50 ML IVPB ×2 (16:00→17:32)
[2019-02-04] MEDS ORDERED: VANCOMYCIN IV PER PHARMACY XX (16:00)
[2019-02-04] MEDS: CEFEPIME 1GM/50 ML (PMX) 50 ML IVPB ×2 (16:15→20:01)
[2019-02-04] MEDS: POTASSIUM CHLORIDE 20 MEQ POWDER FOR ORAL SOLN GTB (18:22)
[2019-02-04] MEDS: VANCOMYCIN 1 GM (PMX) 250 ML IVPB (18:23)
[2019-02-04] MEDS: DOCUSATE SODIUM 10 MG/ML (10ML CUP) GTB (20:01)
[2019-02-05] MEDS: VANCOMYCIN 750 MG (PMX) 250 ML IVPB ×2 (05:39→17:32)
[2019-02-05 06:50] LABS: ADD MAN DIFF? NO
[2019-02-05 06:51] LABS: WHITE BLOOD COUNT 10.7 10^3/ul (4.8-10.8)
[2019-02-05 06:51] LABS: BASOPHILS % 0.4 % (0.0-2.0); EOSINOPHILS # 0.2 10^3/ul (0.0-0.5); EOSINOPHILS % 1.9 % (0.0-7.0); HEMATOCRIT 30.6 % (37.0-47.0); LYMPHOCYTES # 1.6 10^3/ul (0.8-2.9); LYMPHOCYTES % 14.7 % (15.0-51.0); MEAN CORPUSCULAR HEMOGLOBIN 24.9 pg (29.0-33.0); MEAN CORPUSCULAR HGB CONC 29.4 g/dl (32.0-37.0); MEAN CORPUSCULAR VOLUME 84.8 fl (82.0-101.0); MONOCYTE # 0.4 10^3/ul (0.3-0.9); MONOCYTES % 3.7 % (0.0-11.0); NEUTROPHIL # 8.4 10^3/ul (1.6-7.5); NEUTROPHILS % 78.8 % (39.0-77.0); PLATELET COUNT 394 10^3/UL (140-415); RED BLOOD COUNT 3.61 10^6/ul (4.20-5.40); RED CELL DISTRIBUTION WIDTH 16.7 % (11.5-14.5)
[2019-02-05 07:16] LABS: ANION GAP 6 (5-13); BLOOD UREA NITROGEN 8 mg/dl (7-20); CALCIUM 8.9 mg/dl (8.4-10.2); CARBON DIOXIDE 30 mmol/L (21-31); CHLORIDE 100 mmol/L (97-110); CREATININE 0.26 mg/dl (0.44-1.00); Estimated GFR > 60 mL/min (>60); GLUCOSE 122 mg/dl (70-220); POTASSIUM 3.7 mmol/L (3.5-5.1); SODIUM 136 mmol/L (135-144)
[2019-02-05] MEDS: BALSAM PERU/CASTOR OIL 60 GM TUBE TOP (09:07)
[2019-02-05] MEDS: FERROUS SULFATE 60 MG/ML 5ML CUP GTB ×2 (09:07→20:32)
[2019-02-05] MEDS: OXCARBAZEPINE 150 MG TAB GTB ×2 (09:08→20:33)
[2019-02-05] MEDS: FAMOTIDINE 20 MG TAB GTB ×2 (09:08→20:32)
[2019-02-05] MEDS: ZINC SULFATE 220 MG CAP GTB (09:08)
[2019-02-05] MEDS: CEFEPIME 1GM/50 ML (PMX) 50 ML IVPB ×2 (09:08→20:33)
[2019-02-05] MEDS: ASCORBIC ACID 500 MG TAB GTB (09:08)
[2019-02-05] MEDS: ENOXAPARIN 30 MG/0.3 ML SYG SC (09:25)
[2019-02-05] MEDS: ACETAMINOPHEN 650MG/20.3ML CUP GTB (13:47)
[2019-02-05] MEDS: FLUCONAZOLE 100 MG/50 ML (PMX) 50 ML IVPB (16:24)
[2019-02-05] MEDS: DOCUSATE SODIUM 10 MG/ML (10ML CUP) GTB (20:32)
[2019-02-06 06:13] LABS: ADD MAN DIFF? NO
[2019-02-06 06:19] LABS: WHITE BLOOD COUNT 8.9 10^3/ul (4.8-10.8)
[2019-02-06 06:19] LABS: BASOPHIL # 0.1 10^3/ul (0.0-0.1); BASOPHILS % 0.7 % (0.0-2.0); EOSINOPHILS # 0.3 10^3/ul (0.0-0.5); EOSINOPHILS % 3.3 % (0.0-7.0); HEMOGLOBIN 8.9 g/dl (12.0-16.0); LYMPHOCYTES # 1.5 10^3/ul (0.8-2.9); LYMPHOCYTES % 16.5 % (15.0-51.0); MEAN CORPUSCULAR HEMOGLOBIN 25.3 pg (29.0-33.0); MEAN CORPUSCULAR HGB CONC 29.7 g/dl (32.0-37.0); MEAN CORPUSCULAR VOLUME 85.2 fl (82.0-101.0); MEAN PLATELET VOLUME 9.9 fl (7.4-10.4); MONOCYTE # 0.3 10^3/ul (0.3-0.9); MONOCYTES % 3.3 % (0.0-11.0); NEUTROPHIL # 6.7 10^3/ul (1.6-7.5); NEUTROPHILS % 75.7 % (39.0-77.0); PLATELET COUNT 376 10^3/UL (140-415); RED BLOOD COUNT 3.52 10^6/ul (4.20-5.40); RED CELL DISTRIBUTION WIDTH 16.8 % (11.5-14.5)
[2019-02-06 06:41] LABS: ANION GAP 7 (5-13); BLOOD UREA NITROGEN 9 mg/dl (7-20); CALCIUM 8.8 mg/dl (8.4-10.2); CARBON DIOXIDE 30 mmol/L (21-31); CHLORIDE 100 mmol/L (97-110); CREATININE 0.19 mg/dl (0.44-1.00); Estimated GFR > 60 mL/min (>60); GLUCOSE 116 mg/dl (70-220); POTASSIUM 3.8 mmol/L (3.5-5.1); SODIUM 137 mmol/L (135-144)
[2019-02-06] MEDS: VANCOMYCIN 750 MG (PMX) 250 ML IVPB (06:54)
[2019-02-06 07:32] LABS: VANCOMYCIN,TROUGH 7.2 ug/ml (10.0-20.0)
[2019-02-06] MEDS: FAMOTIDINE 20 MG TAB GTB ×2 (09:03→20:20)
[2019-02-06] MEDS: CEFEPIME 1GM/50 ML (PMX) 50 ML IVPB ×2 (09:03→20:20)
[2019-02-06] MEDS: FERROUS SULFATE 60 MG/ML 5ML CUP GTB ×2 (09:03→20:20)
[2019-02-06] MEDS: OXCARBAZEPINE 150 MG TAB GTB ×2 (09:03→20:20)
[2019-02-06] MEDS: ASCORBIC ACID 500 MG TAB GTB (09:03)
[2019-02-06] MEDS: ZINC SULFATE 220 MG CAP GTB (09:03)
[2019-02-06] MEDS: BALSAM PERU/CASTOR OIL 60 GM TUBE TOP (09:03)
[2019-02-06] MEDS: ENOXAPARIN 30 MG/0.3 ML SYG SC (09:17)
[2019-02-06] MEDS: VANCOMYCIN 1 GM 250 ML IVPB (15:35)
[2019-02-06] MEDS: FLUCONAZOLE 100 MG/50 ML (PMX) 50 ML IVPB (15:35)
[2019-02-06] MEDS: DOCUSATE SODIUM 10 MG/ML (10ML CUP) GTB (20:20)
[2019-02-07] MEDS: VANCOMYCIN 1 GM 250 ML IVPB ×2 (04:06→16:00)
[2019-02-07 06:10] LABS: ADD MAN DIFF? NO
[2019-02-07 06:35] LABS: BASOPHILS % 0.5 % (0.0-2.0); EOSINOPHILS # 0.4 10^3/ul (0.0-0.5); EOSINOPHILS % 5.6 % (0.0-7.0); HEMATOCRIT 27.6 % (37.0-47.0); LYMPHOCYTES % 26.3 % (15.0-51.0); MEAN CORPUSCULAR HEMOGLOBIN 24.7 pg (29.0-33.0); MEAN CORPUSCULAR VOLUME 85.2 fl (82.0-101.0); MEAN PLATELET VOLUME 10.1 fl (7.4-10.4); MONOCYTE # 0.4 10^3/ul (0.3-0.9); MONOCYTES % 4.6 % (0.0-11.0); NEUTROPHIL # 4.8 10^3/ul (1.6-7.5); NEUTROPHILS % 62.6 % (39.0-77.0); PLATELET COUNT 350 10^3/UL (140-415); RED BLOOD COUNT 3.24 10^6/ul (4.20-5.40); RED CELL DISTRIBUTION WIDTH 16.5 % (11.5-14.5)
[2019-02-07 06:35] LABS: WHITE BLOOD COUNT 7.6 10^3/ul (4.8-10.8)
[2019-02-07 07:27] LABS: ANION GAP 6 (5-13); BLOOD UREA NITROGEN 10 mg/dl (7-20); CALCIUM 8.4 mg/dl (8.4-10.2); CARBON DIOXIDE 30 mmol/L (21-31); CHLORIDE 101 mmol/L (97-110); CREATININE 0.25 mg/dl (0.44-1.00); Estimated GFR > 60 mL/min (>60); GLUCOSE 100 mg/dl (70-220); POTASSIUM 3.6 mmol/L (3.5-5.1); SODIUM 137 mmol/L (135-144)
[2019-02-07] MEDS: CEFEPIME 1GM/50 ML (PMX) 50 ML IVPB ×2 (08:52→20:34)
[2019-02-07] MEDS: FERROUS SULFATE 60 MG/ML 5ML CUP GTB ×2 (08:53→20:34)
[2019-02-07] MEDS: ZINC SULFATE 220 MG CAP GTB (08:53)
[2019-02-07] MEDS: FAMOTIDINE 20 MG TAB GTB ×2 (08:53→20:34)
[2019-02-07] MEDS: ASCORBIC ACID 500 MG TAB GTB (08:53)
[2019-02-07] MEDS: OXCARBAZEPINE 150 MG TAB GTB ×2 (08:53→20:34)
[2019-02-07] MEDS: ENOXAPARIN 30 MG/0.3 ML SYG SC (09:02)
[2019-02-07] MEDS: BALSAM PERU/CASTOR OIL 60 GM TUBE TOP (09:04)
[2019-02-07] MEDS: FLUCONAZOLE 100 MG/50 ML (PMX) 50 ML IVPB (16:00)
[2019-02-07] MEDS: DOCUSATE SODIUM 10 MG/ML (10ML CUP) GTB (20:34)
[2019-02-08] MEDS: VANCOMYCIN 1 GM 250 ML IVPB ×3 (03:10→18:09)
[2019-02-08] MEDS: FERROUS SULFATE 60 MG/ML 5ML CUP GTB ×2 (09:01→20:20)
[2019-02-08] MEDS: OXCARBAZEPINE 150 MG TAB GTB ×2 (09:01→20:21)
[2019-02-08] MEDS: ZINC SULFATE 220 MG CAP GTB (09:01)
[2019-02-08] MEDS: ASCORBIC ACID 500 MG TAB GTB (09:02)
[2019-02-08] MEDS: FAMOTIDINE 20 MG TAB GTB ×2 (09:02→20:21)
[2019-02-08] MEDS: CEFEPIME 1GM/50 ML (PMX) 50 ML IVPB ×2 (09:02→20:20)
[2019-02-08] MEDS: ENOXAPARIN 30 MG/0.3 ML SYG SC (09:07)
[2019-02-08] MEDS: BALSAM PERU/CASTOR OIL 60 GM TUBE TOP (09:51)
[2019-02-08] MEDS: FLUCONAZOLE 100 MG/50 ML (PMX) 50 ML IVPB (15:39)
[2019-02-08] MEDS: DOCUSATE SODIUM 10 MG/ML (10ML CUP) GTB (21:00)
[2019-02-09] MEDS: VANCOMYCIN 750 MG (PMX) 250 ML IVPB ×3 (03:19→16:37)
[2019-02-09 06:07] LABS: BLOOD UREA NITROGEN 10 mg/dl (7-20)
[2019-02-09 06:07] LABS: CREATININE 0.27 mg/dl (0.44-1.00)
[2019-02-09] MEDS: FAMOTIDINE 20 MG TAB GTB ×2 (08:34→21:37)
[2019-02-09] MEDS: FERROUS SULFATE 60 MG/ML 5ML CUP GTB ×2 (08:34→21:37)
[2019-02-09] MEDS: ZINC SULFATE 220 MG CAP GTB (08:34)
[2019-02-09] MEDS: BALSAM PERU/CASTOR OIL 60 GM TUBE TOP (08:34)
[2019-02-09] MEDS: ASCORBIC ACID 500 MG TAB GTB (08:34)
[2019-02-09] MEDS: CEFEPIME 1GM/50 ML (PMX) 50 ML IVPB ×2 (08:34→21:37)
[2019-02-09] MEDS: OXCARBAZEPINE 150 MG TAB GTB ×2 (08:34→21:37)
[2019-02-09] MEDS: ENOXAPARIN 30 MG/0.3 ML SYG SC (08:43)
[2019-02-09] MEDS: ALBUTEROL/IPRATROPIUM (NEB) 3 ML AMP HHN ×2 (15:02→19:48)
[2019-02-09] MEDS: FLUCONAZOLE 100 MG/50 ML (PMX) 50 ML IVPB (16:38)
[2019-02-09] MEDS: DOCUSATE SODIUM 10 MG/ML (10ML CUP) GTB (21:37)
[2019-02-10 00:13] LABS: VANCOMYCIN,TROUGH 19.1 ug/ml (10.0-20.0)
[2019-02-10] MEDS: VANCOMYCIN 500 MG (PMX) 100 ML IVPB ×3 (01:51→17:55)
[2019-02-10 06:22] LABS: ADD MAN DIFF? NO
[2019-02-10 06:37] LABS: BASOPHIL # 0.1 10^3/ul (0.0-0.1); BASOPHILS % 0.4 % (0.0-2.0); EOSINOPHILS # 0.7 10^3/ul (0.0-0.5); EOSINOPHILS % 5.8 % (0.0-7.0); HEMATOCRIT 32.5 % (37.0-47.0); HEMOGLOBIN 9.5 g/dl (12.0-16.0); LYMPHOCYTES # 2.3 10^3/ul (0.8-2.9); LYMPHOCYTES % 18.9 % (15.0-51.0); MEAN CORPUSCULAR HEMOGLOBIN 24.9 pg (29.0-33.0); MEAN CORPUSCULAR HGB CONC 29.2 g/dl (32.0-37.0); MEAN CORPUSCULAR VOLUME 85.1 fl (82.0-101.0); MEAN PLATELET VOLUME 9.9 fl (7.4-10.4); MONOCYTE # 0.5 10^3/ul (0.3-0.9); MONOCYTES % 3.7 % (0.0-11.0); NEUTROPHIL # 8.6 10^3/ul (1.6-7.5); NEUTROPHILS % 70.5 % (39.0-77.0); PLATELET COUNT 382 10^3/UL (140-415); RED BLOOD COUNT 3.82 10^6/ul (4.20-5.40); RED CELL DISTRIBUTION WIDTH 16.7 % (11.5-14.5)
[2019-02-10 06:37] LABS: WHITE BLOOD COUNT 12.2 10^3/ul (4.8-10.8)
[2019-02-10 06:47] LABS: ANION GAP 6 (5-13); BLOOD UREA NITROGEN 10 mg/dl (7-20); CALCIUM 9.6 mg/dl (8.4-10.2); CARBON DIOXIDE 31 mmol/L (21-31); CHLORIDE 99 mmol/L (97-110); Estimated GFR > 60 mL/min (>60); GLUCOSE 105 mg/dl (70-220); POTASSIUM 4.4 mmol/L (3.5-5.1); SODIUM 136 mmol/L (135-144)
[2019-02-10] MEDS: BALSAM PERU/CASTOR OIL 60 GM TUBE TOP (08:39)
[2019-02-10] MEDS: CEFEPIME 1GM/50 ML (PMX) 50 ML IVPB ×2 (08:39→21:34)
[2019-02-10] MEDS: ASCORBIC ACID 500 MG TAB GTB (08:40)
[2019-02-10] MEDS: OXCARBAZEPINE 150 MG TAB GTB ×2 (08:40→21:34)
[2019-02-10] MEDS: FERROUS SULFATE 60 MG/ML 5ML CUP GTB ×2 (08:40→21:34)
[2019-02-10] MEDS: FAMOTIDINE 20 MG TAB GTB ×2 (08:40→21:34)
[2019-02-10] MEDS: ZINC SULFATE 220 MG CAP GTB (08:40)
[2019-02-10] MEDS: ALBUTEROL/IPRATROPIUM (NEB) 3 ML AMP HHN ×3 (08:44→20:06)
[2019-02-10] MEDS: ENOXAPARIN 30 MG/0.3 ML SYG SC (08:50)
[2019-02-10] MEDS: ACETAMINOPHEN 650MG/20.3ML CUP GTB (12:17)
[2019-02-10] MEDS: FLUCONAZOLE 100 MG/50 ML (PMX) 50 ML IVPB (15:07)
[2019-02-10] MEDS: DOCUSATE SODIUM 10 MG/ML (10ML CUP) GTB (21:34)
[2019-02-11 02:02] LABS: VANCOMYCIN,TROUGH 14.8 ug/ml (10.0-20.0)
[2019-02-11] MEDS: VANCOMYCIN 500 MG (PMX) 100 ML IVPB ×2 (05:41→17:44)
[2019-02-11 05:46] LABS: ADD MAN DIFF? NO
[2019-02-11 06:00] LABS: BASOPHILS % 0.3 % (0.0-2.0); EOSINOPHILS # 0.5 10^3/ul (0.0-0.5); EOSINOPHILS % 5.5 % (0.0-7.0); HEMATOCRIT 29.9 % (37.0-47.0); HEMOGLOBIN 8.8 g/dl (12.0-16.0); LYMPHOCYTES # 1.7 10^3/ul (0.8-2.9); MEAN CORPUSCULAR HEMOGLOBIN 24.7 pg (29.0-33.0); MEAN CORPUSCULAR HGB CONC 29.4 g/dl (32.0-37.0); MEAN PLATELET VOLUME 9.9 fl (7.4-10.4); MONOCYTE # 0.4 10^3/ul (0.3-0.9); MONOCYTES % 4.1 % (0.0-11.0); NEUTROPHIL # 6.8 10^3/ul (1.6-7.5); NEUTROPHILS % 71.6 % (39.0-77.0); PLATELET COUNT 370 10^3/UL (140-415); RED BLOOD COUNT 3.56 10^6/ul (4.20-5.40); RED CELL DISTRIBUTION WIDTH 16.7 % (11.5-14.5)
[2019-02-11 06:00] LABS: WHITE BLOOD COUNT 9.5 10^3/ul (4.8-10.8)
[2019-02-11 06:20] LABS: ANION GAP 8 (5-13); BLOOD UREA NITROGEN 12 mg/dl (7-20); CALCIUM 9.4 mg/dl (8.4-10.2); CARBON DIOXIDE 29 mmol/L (21-31); CHLORIDE 97 mmol/L (97-110); CREATININE 0.29 mg/dl (0.44-1.00); Estimated GFR > 60 mL/min (>60); GLUCOSE 123 mg/dl (70-220); POTASSIUM 4.4 mmol/L (3.5-5.1); SODIUM 134 mmol/L (135-144)
[2019-02-11] MEDS: CEFEPIME 1GM/50 ML (PMX) 50 ML IVPB ×2 (08:59→20:55)
[2019-02-11] MEDS: FERROUS SULFATE 60 MG/ML 5ML CUP GTB ×2 (08:59→20:54)
[2019-02-11] MEDS: ASCORBIC ACID 500 MG TAB GTB (09:00)
[2019-02-11] MEDS: FAMOTIDINE 20 MG TAB GTB ×2 (09:00→20:55)
[2019-02-11] MEDS: ZINC SULFATE 220 MG CAP GTB (09:00)
[2019-02-11] MEDS: OXCARBAZEPINE 150 MG TAB GTB ×2 (09:00→20:55)
[2019-02-11] MEDS: BALSAM PERU/CASTOR OIL 60 GM TUBE TOP (09:01)
[2019-02-11] MEDS: ENOXAPARIN 30 MG/0.3 ML SYG SC (09:17)
[2019-02-11] MEDS: ALBUTEROL/IPRATROPIUM (NEB) 3 ML AMP HHN ×3 (10:17→20:21)
[2019-02-11] MEDS: MULTIVITAMINS 30 ML CUP GTB (12:12)
[2019-02-11] MEDS: FLUCONAZOLE 100 MG/50 ML (PMX) 50 ML IVPB (16:17)
[2019-02-11] MEDS: DOCUSATE SODIUM 10 MG/ML (10ML CUP) GTB (20:55)
[2019-02-12 05:31] LABS: ADD MAN DIFF? NO
[2019-02-12] MEDS: VANCOMYCIN 500 MG (PMX) 100 ML IVPB (05:36)
[2019-02-12 05:39] LABS: BASOPHIL # 0.1 10^3/ul (0.0-0.1); BASOPHILS % 0.5 % (0.0-2.0); EOSINOPHILS # 0.8 10^3/ul (0.0-0.5); EOSINOPHILS % 6.2 % (0.0-7.0); HEMATOCRIT 31.2 % (37.0-47.0); HEMOGLOBIN 9.2 g/dl (12.0-16.0); LYMPHOCYTES # 2.5 10^3/ul (0.8-2.9); LYMPHOCYTES % 18.9 % (15.0-51.0); MEAN CORPUSCULAR HEMOGLOBIN 24.8 pg (29.0-33.0); MEAN CORPUSCULAR HGB CONC 29.5 g/dl (32.0-37.0); MEAN CORPUSCULAR VOLUME 84.1 fl (82.0-101.0); MEAN PLATELET VOLUME 9.7 fl (7.4-10.4); MONOCYTE # 0.6 10^3/ul (0.3-0.9); MONOCYTES % 4.5 % (0.0-11.0); NEUTROPHIL # 9.2 10^3/ul (1.6-7.5); NEUTROPHILS % 69.4 % (39.0-77.0); PLATELET COUNT 390 10^3/UL (140-415); RED BLOOD COUNT 3.71 10^6/ul (4.20-5.40); RED CELL DISTRIBUTION WIDTH 16.7 % (11.5-14.5)
[2019-02-12 05:39] LABS: WHITE BLOOD COUNT 13.2 10^3/ul (4.8-10.8)
[2019-02-12 06:13] LABS: ANION GAP 7 (5-13); BLOOD UREA NITROGEN 13 mg/dl (7-20); CALCIUM 9.1 mg/dl (8.4-10.2); CARBON DIOXIDE 31 mmol/L (21-31); CHLORIDE 98 mmol/L (97-110); CREATININE 0.24 mg/dl (0.44-1.00); Estimated GFR > 60 mL/min (>60); GLUCOSE 95 mg/dl (70-220); POTASSIUM 4.7 mmol/L (3.5-5.1); SODIUM 136 mmol/L (135-144)
[2019-02-12] MEDS: ALBUTEROL/IPRATROPIUM (NEB) 3 ML AMP HHN ×3 (08:19→19:49)
[2019-02-12] MEDS: CEFEPIME 1GM/50 ML (PMX) 50 ML IVPB (08:31)
[2019-02-12] MEDS: FAMOTIDINE 20 MG TAB GTB ×2 (08:32→21:11)
[2019-02-12] MEDS: MULTIVITAMINS 30 ML CUP GTB (08:32)
[2019-02-12] MEDS: ASCORBIC ACID 500 MG TAB GTB (08:32)
[2019-02-12] MEDS: OXCARBAZEPINE 150 MG TAB GTB ×2 (08:32→21:20)
[2019-02-12] MEDS: ZINC SULFATE 220 MG CAP GTB (08:32)
[2019-02-12] MEDS: FERROUS SULFATE 60 MG/ML 5ML CUP GTB ×2 (08:32→21:11)
[2019-02-12] MEDS: BALSAM PERU/CASTOR OIL 60 GM TUBE TOP (08:34)
[2019-02-12] MEDS: ENOXAPARIN 30 MG/0.3 ML SYG SC (08:49)
[2019-02-12] MEDS: DOCUSATE SODIUM 10 MG/ML (10ML CUP) GTB (21:11)
[2019-02-13 05:56] LABS: ADD MAN DIFF? NO
[2019-02-13 06:02] LABS: BASOPHIL # 0.1 10^3/ul (0.0-0.1); BASOPHILS % 0.6 % (0.0-2.0); EOSINOPHILS # 0.5 10^3/ul (0.0-0.5); EOSINOPHILS % 5.5 % (0.0-7.0); HEMATOCRIT 33.3 % (37.0-47.0); HEMOGLOBIN 9.9 g/dl (12.0-16.0); LYMPHOCYTES % 21.6 % (15.0-51.0); MEAN CORPUSCULAR HEMOGLOBIN 25.3 pg (29.0-33.0); MEAN CORPUSCULAR HGB CONC 29.7 g/dl (32.0-37.0); MEAN CORPUSCULAR VOLUME 85.2 fl (82.0-101.0); MEAN PLATELET VOLUME 10.4 fl (7.4-10.4); MONOCYTE # 0.4 10^3/ul (0.3-0.9); MONOCYTES % 4.1 % (0.0-11.0); NEUTROPHIL # 6.1 10^3/ul (1.6-7.5); NEUTROPHILS % 67.9 % (39.0-77.0); PLATELET COUNT 317 10^3/UL (140-415); RED BLOOD COUNT 3.91 10^6/ul (4.20-5.40); RED CELL DISTRIBUTION WIDTH 16.7 % (11.5-14.5)
[2019-02-13 06:44] LABS: ANION GAP 8 (5-13); BLOOD UREA NITROGEN 16 mg/dl (7-20); CALCIUM 9.5 mg/dl (8.4-10.2); CARBON DIOXIDE 32 mmol/L (21-31); CHLORIDE 96 mmol/L (97-110); CREATININE 0.25 mg/dl (0.44-1.00); Estimated GFR > 60 mL/min (>60); GLUCOSE 114 mg/dl (70-220); SODIUM 136 mmol/L (135-144)
[2019-02-13] MEDS: ALBUTEROL/IPRATROPIUM (NEB) 3 ML AMP HHN ×3 (08:16→20:40)
[2019-02-13] MEDS: BALSAM PERU/CASTOR OIL 60 GM TUBE TOP (09:00)
[2019-02-13] MEDS: OXCARBAZEPINE 150 MG TAB GTB ×2 (09:41→22:02)
[2019-02-13] MEDS: MULTIVITAMINS 30 ML CUP GTB (09:41)
[2019-02-13] MEDS: FAMOTIDINE 20 MG TAB GTB ×2 (09:41→22:01)
[2019-02-13] MEDS: ASCORBIC ACID 500 MG TAB GTB (09:41)
[2019-02-13] MEDS: ZINC SULFATE 220 MG CAP GTB (09:41)
[2019-02-13] MEDS: FERROUS SULFATE 60 MG/ML 5ML CUP GTB ×2 (09:41→22:01)
[2019-02-13] MEDS: ENOXAPARIN 30 MG/0.3 ML SYG SC (10:35)
[2019-02-13] MEDS: DOCUSATE SODIUM 10 MG/ML (10ML CUP) GTB (22:01)
[2019-02-14] MEDS: ZINC SULFATE 220 MG CAP GTB (08:10)
[2019-02-14] MEDS: ASCORBIC ACID 500 MG TAB GTB (08:10)
[2019-02-14] MEDS: MULTIVITAMINS 30 ML CUP GTB (08:11)
[2019-02-14] MEDS: FERROUS SULFATE 60 MG/ML 5ML CUP GTB ×2 (08:11→21:15)
[2019-02-14] MEDS: OXCARBAZEPINE 150 MG TAB GTB ×2 (08:11→21:16)
[2019-02-14] MEDS: FAMOTIDINE 20 MG TAB GTB ×2 (08:11→21:16)
[2019-02-14] MEDS: ALBUTEROL/IPRATROPIUM (NEB) 3 ML AMP HHN ×3 (08:20→19:57)
[2019-02-14] MEDS: ENOXAPARIN 30 MG/0.3 ML SYG SC (08:22)
[2019-02-14] MEDS: BALSAM PERU/CASTOR OIL 60 GM TUBE TOP (09:11)
[2019-02-14] MEDS: DOCUSATE SODIUM 10 MG/ML (10ML CUP) GTB (21:15)
[2019-02-15 05:59] LABS: ADD MAN DIFF? NO
[2019-02-15 06:07] LABS: BASOPHIL # 0.1 10^3/ul (0.0-0.1); BASOPHILS % 0.7 % (0.0-2.0); EOSINOPHILS # 0.3 10^3/ul (0.0-0.5); EOSINOPHILS % 3.1 % (0.0-7.0); HEMATOCRIT 31.3 % (37.0-47.0); HEMOGLOBIN 9.1 g/dl (12.0-16.0); LYMPHOCYTES # 2.4 10^3/ul (0.8-2.9); LYMPHOCYTES % 22.4 % (15.0-51.0); MEAN CORPUSCULAR HEMOGLOBIN 24.6 pg (29.0-33.0); MEAN CORPUSCULAR HGB CONC 29.1 g/dl (32.0-37.0); MEAN CORPUSCULAR VOLUME 84.6 fl (82.0-101.0); MEAN PLATELET VOLUME 9.7 fl (7.4-10.4); MONOCYTE # 0.4 10^3/ul (0.3-0.9); MONOCYTES % 4.1 % (0.0-11.0); NEUTROPHIL # 7.4 10^3/ul (1.6-7.5); NEUTROPHILS % 69.3 % (39.0-77.0); PLATELET COUNT 400 10^3/UL (140-415); RED CELL DISTRIBUTION WIDTH 16.2 % (11.5-14.5)
[2019-02-15 06:07] LABS: WHITE BLOOD COUNT 10.7 10^3/ul (4.8-10.8)
[2019-02-15 06:31] LABS: ANION GAP 7 (5-13); BLOOD UREA NITROGEN 14 mg/dl (7-20); CALCIUM 9.3 mg/dl (8.4-10.2); CARBON DIOXIDE 32 mmol/L (21-31); CHLORIDE 98 mmol/L (97-110); CREATININE 0.24 mg/dl (0.44-1.00); Estimated GFR > 60 mL/min (>60); GLUCOSE 122 mg/dl (70-220); POTASSIUM 4.6 mmol/L (3.5-5.1); SODIUM 137 mmol/L (135-144)
[2019-02-15] MEDS: ALBUTEROL/IPRATROPIUM (NEB) 3 ML AMP HHN ×2 (08:00→13:51)
[2019-02-15] MEDS: MULTIVITAMINS 30 ML CUP GTB (09:17)
[2019-02-15] MEDS: FERROUS SULFATE 60 MG/ML 5ML CUP GTB ×2 (09:17→20:28)
[2019-02-15] MEDS: ZINC SULFATE 220 MG CAP GTB (09:18)
[2019-02-15] MEDS: ASCORBIC ACID 500 MG TAB GTB (09:18)
[2019-02-15] MEDS: OXCARBAZEPINE 150 MG TAB GTB ×2 (09:18→20:28)
[2019-02-15] MEDS: FAMOTIDINE 20 MG TAB GTB ×2 (09:18→20:28)
[2019-02-15] MEDS: ENOXAPARIN 30 MG/0.3 ML SYG SC (09:40)
[2019-02-15] MEDS: BALSAM PERU/CASTOR OIL 60 GM TUBE TOP (09:40)
[2019-02-15] MEDS: SOD CHLORIDE 0.9% 500 ML IV (19:42)
[2019-02-15] MEDS: LEVALBUTEROL (NEB) 0.63 MG/3 ML AMP HHN (20:17)
[2019-02-15] MEDS: DOCUSATE SODIUM 10 MG/ML (10ML CUP) GTB (20:28)
[2019-02-16] MEDS: LEVALBUTEROL (NEB) 0.63 MG/3 ML AMP HHN ×4 (02:00→19:48)
[2019-02-16] MEDS: FERROUS SULFATE 60 MG/ML 5ML CUP GTB ×2 (09:46→20:37)
[2019-02-16] MEDS: OXCARBAZEPINE 150 MG TAB GTB ×2 (09:46→20:36)
[2019-02-16] MEDS: FAMOTIDINE 20 MG TAB GTB ×2 (09:46→20:36)
[2019-02-16] MEDS: ASCORBIC ACID 500 MG TAB GTB (09:46)
[2019-02-16] MEDS: MULTIVITAMINS 30 ML CUP GTB (09:46)
[2019-02-16] MEDS: ZINC SULFATE 220 MG CAP GTB (09:46)
[2019-02-16] MEDS: BALSAM PERU/CASTOR OIL 60 GM TUBE TOP (09:47)
[2019-02-16] MEDS: ENOXAPARIN 30 MG/0.3 ML SYG SC (10:06)
[2019-02-16] MEDS: DOCUSATE SODIUM 10 MG/ML (10ML CUP) GTB (20:37)
[2019-02-17] MEDS: LEVALBUTEROL (NEB) 0.63 MG/3 ML AMP HHN ×4 (01:29→20:01)
[2019-02-17 05:52] LABS: ADD MAN DIFF? NO
[2019-02-17 06:03] LABS: BASOPHILS % 0.3 % (0.0-2.0); EOSINOPHILS # 0.3 10^3/ul (0.0-0.5); EOSINOPHILS % 2.2 % (0.0-7.0); HEMATOCRIT 29.2 % (37.0-47.0); HEMOGLOBIN 8.7 g/dl (12.0-16.0); LYMPHOCYTES # 2.2 10^3/ul (0.8-2.9); LYMPHOCYTES % 16.1 % (15.0-51.0); MEAN CORPUSCULAR HEMOGLOBIN 24.9 pg (29.0-33.0); MEAN CORPUSCULAR HGB CONC 29.8 g/dl (32.0-37.0); MEAN CORPUSCULAR VOLUME 83.4 fl (82.0-101.0); MEAN PLATELET VOLUME 9.9 fl (7.4-10.4); MONOCYTE # 0.5 10^3/ul (0.3-0.9); MONOCYTES % 3.8 % (0.0-11.0); NEUTROPHIL # 10.4 10^3/ul (1.6-7.5); NEUTROPHILS % 77.2 % (39.0-77.0); PLATELET COUNT 396 10^3/UL (140-415); RED CELL DISTRIBUTION WIDTH 16.7 % (11.5-14.5)
[2019-02-17 06:03] LABS: WHITE BLOOD COUNT 13.5 10^3/ul (4.8-10.8)
[2019-02-17 06:35] LABS: ANION GAP 11 (5-13); BLOOD UREA NITROGEN 14 mg/dl (7-20); CALCIUM 8.9 mg/dl (8.4-10.2); CARBON DIOXIDE 29 mmol/L (21-31); CHLORIDE 97 mmol/L (97-110); CREATININE 0.25 mg/dl (0.44-1.00); Estimated GFR > 60 mL/min (>60); GLUCOSE 111 mg/dl (70-220); POTASSIUM 4.6 mmol/L (3.5-5.1); SODIUM 137 mmol/L (135-144)
[2019-02-17] MEDS: ZINC SULFATE 220 MG CAP GTB (08:17)
[2019-02-17] MEDS: FERROUS SULFATE 60 MG/ML 5ML CUP GTB ×2 (08:18→20:44)
[2019-02-17] MEDS: OXCARBAZEPINE 150 MG TAB GTB ×2 (08:18→20:44)
[2019-02-17] MEDS: FAMOTIDINE 20 MG TAB GTB ×2 (08:18→20:44)
[2019-02-17] MEDS: MULTIVITAMINS 30 ML CUP GTB (08:18)
[2019-02-17] MEDS: ASCORBIC ACID 500 MG TAB GTB (08:18)
[2019-02-17] MEDS: ENOXAPARIN 30 MG/0.3 ML SYG SC (08:24)
[2019-02-17] MEDS: BALSAM PERU/CASTOR OIL 60 GM TUBE TOP (09:02)
[2019-02-17] MEDS: CEFEPIME 1GM/50 ML (PMX) 50 ML IVPB (16:21)
[2019-02-17] MEDS: DOCUSATE SODIUM 10 MG/ML (10ML CUP) GTB (20:44)
[2019-02-18] MEDS: LEVALBUTEROL (NEB) 0.63 MG/3 ML AMP HHN ×4 (01:49→19:45)
[2019-02-18] MEDS: CEFEPIME 1GM/50 ML (PMX) 50 ML IVPB ×2 (05:34→16:32)
[2019-02-18 05:58] LABS: ADD MAN DIFF? NO; BASOPHIL # 0.1 10^3/ul (0.0-0.1); BASOPHILS % 0.5 % (0.0-2.0); EOSINOPHILS # 0.4 10^3/ul (0.0-0.5); EOSINOPHILS % 3.7 % (0.0-7.0); HEMATOCRIT 27.9 % (37.0-47.0); HEMOGLOBIN 8.3 g/dl (12.0-16.0); LYMPHOCYTES % 10.5 % (15.0-51.0); MEAN CORPUSCULAR HGB CONC 29.7 g/dl (32.0-37.0); MEAN PLATELET VOLUME 9.9 fl (7.4-10.4); MONOCYTE # 0.5 10^3/ul (0.3-0.9); MONOCYTES % 4.7 % (0.0-11.0); NEUTROPHIL # 7.7 10^3/ul (1.6-7.5); NEUTROPHILS % 80.2 % (39.0-77.0); PLATELET COUNT 384 10^3/UL (140-415); RED BLOOD COUNT 3.32 10^6/ul (4.20-5.40); RED CELL DISTRIBUTION WIDTH 16.5 % (11.5-14.5)
[2019-02-18 05:58] LABS: WHITE BLOOD COUNT 9.6 10^3/ul (4.8-10.8)
[2019-02-18 06:58] LABS: ANION GAP 8 (5-13); BLOOD UREA NITROGEN 15 mg/dl (7-20); CALCIUM 8.7 mg/dl (8.4-10.2); CARBON DIOXIDE 29 mmol/L (21-31); CHLORIDE 98 mmol/L (97-110); CREATININE 0.21 mg/dl (0.44-1.00); Estimated GFR > 60 mL/min (>60); GLUCOSE 104 mg/dl (70-220); POTASSIUM 5.1 mmol/L (3.5-5.1); SODIUM 135 mmol/L (135-144)
[2019-02-18] MEDS: MULTIVITAMINS 30 ML CUP GTB (09:01)
[2019-02-18] MEDS: ASCORBIC ACID 500 MG TAB GTB (09:01)
[2019-02-18] MEDS: ZINC SULFATE 220 MG CAP GTB (09:01)
[2019-02-18] MEDS: FAMOTIDINE 20 MG TAB GTB ×2 (09:01→21:39)
[2019-02-18] MEDS: OXCARBAZEPINE 150 MG TAB GTB ×2 (09:01→21:39)
[2019-02-18] MEDS: FERROUS SULFATE 60 MG/ML 5ML CUP GTB ×2 (09:01→21:38)
[2019-02-18] MEDS: BALSAM PERU/CASTOR OIL 60 GM TUBE TOP (09:03)
[2019-02-18] MEDS: ENOXAPARIN 30 MG/0.3 ML SYG SC (09:13)
[2019-02-18] MEDS: DOCUSATE SODIUM 10 MG/ML (10ML CUP) GTB (21:38)
[2019-02-18] MEDS: SCOPOLAMINE 1.5 MG PATCH TRANSDERM (22:41)
[2019-02-19] MEDS: LEVALBUTEROL (NEB) 0.63 MG/3 ML AMP HHN ×3 (01:25→14:18)
[2019-02-19 05:42] LABS: ADD MAN DIFF? NO
[2019-02-19] MEDS: CEFEPIME 1GM/50 ML (PMX) 50 ML IVPB ×2 (05:45→16:02)
[2019-02-19 05:52] LABS: WHITE BLOOD COUNT 7.3 10^3/ul (4.8-10.8)
[2019-02-19 05:52] LABS: BASOPHILS % 0.4 % (0.0-2.0); EOSINOPHILS # 0.5 10^3/ul (0.0-0.5); EOSINOPHILS % 6.6 % (0.0-7.0); HEMATOCRIT 28.6 % (37.0-47.0); HEMOGLOBIN 8.5 g/dl (12.0-16.0); LYMPHOCYTES # 1.4 10^3/ul (0.8-2.9); LYMPHOCYTES % 18.8 % (15.0-51.0); MEAN CORPUSCULAR HGB CONC 29.7 g/dl (32.0-37.0); MEAN CORPUSCULAR VOLUME 84.1 fl (82.0-101.0); MEAN PLATELET VOLUME 9.8 fl (7.4-10.4); MONOCYTE # 0.3 10^3/ul (0.3-0.9); MONOCYTES % 4.7 % (0.0-11.0); NEUTROPHIL # 5.1 10^3/ul (1.6-7.5); NEUTROPHILS % 69.2 % (39.0-77.0); PLATELET COUNT 377 10^3/UL (140-415); RED CELL DISTRIBUTION WIDTH 16.4 % (11.5-14.5)
[2019-02-19 06:17] LABS: ANION GAP 8 (5-13); BLOOD UREA NITROGEN 14 mg/dl (7-20); CALCIUM 9.1 mg/dl (8.4-10.2); CARBON DIOXIDE 31 mmol/L (21-31); CHLORIDE 99 mmol/L (97-110); CREATININE 0.28 mg/dl (0.44-1.00); Estimated GFR > 60 mL/min (>60); GLUCOSE 120 mg/dl (70-220); POTASSIUM 4.4 mmol/L (3.5-5.1); SODIUM 138 mmol/L (135-144)
[2019-02-19] MEDS: FERROUS SULFATE 60 MG/ML 5ML CUP GTB (08:27)
[2019-02-19] MEDS: BALSAM PERU/CASTOR OIL 60 GM TUBE TOP (08:27)
[2019-02-19] MEDS: OXCARBAZEPINE 150 MG TAB GTB (08:27)
[2019-02-19] MEDS: ZINC SULFATE 220 MG CAP GTB (08:27)
[2019-02-19] MEDS: ASCORBIC ACID 500 MG TAB GTB (08:27)
[2019-02-19] MEDS: MULTIVITAMINS 30 ML CUP GTB (08:27)
[2019-02-19] MEDS: FAMOTIDINE 20 MG TAB GTB (08:27)
[2019-02-19] MEDS: ENOXAPARIN 30 MG/0.3 ML SYG SC (08:54)
== END 2019-02-19 18:10 | DRG 871 ==
LOC: E/R 09:13 → 6WM 12:11
PROC: 3E0F7GC Introduction of Other Therapeutic Substance into Respiratory Tract, Via Natural or Artificial Opening (ICD-10-PCS; principal; 2019-02-03)
DX: A41.9 Sepsis, unspecified organism (principal); J18.9 Pneumonia, unspecified organism; J96.01 Acute respiratory failure with hypoxia; E43 Unspecified severe protein-calorie malnutrition; N39.0 Urinary tract infection, site not specified; Z68.1 Body mass index [BMI] 19.9 or less, adult; R13.10 Dysphagia, unspecified; R54 Age-related physical debility; F32.9 Major depressive disorder, single episode, unspecified; F41.9 Anxiety disorder, unspecified; G80.9 Cerebral palsy, unspecified; D64.9 Anemia, unspecified; Z90.3 Acquired absence of stomach [part of]; Z66 Do not resuscitate; L89.152 Pressure ulcer of sacral region, stage 2
CPT/HCPCS: 36600; 71045; 80048; 80053; 80202; 81001; 82565; 82803; 83605; 84484; 84520; 85025; 85610; 85730; 87040-91; 87081; 87086; 93005; 94640; 94664; 94667; 94668; 96374; 96375; 96376; 99285-25